=== PATIENT | male | born 1960 | race Caucasian/White ===

== ENCOUNTER 2021-04-03 11:45 | Emergency (ER) | payer BC, OTHER ==
--- NOTE | 2021-04-03 14:16 | ED ---
General Adult HPI - General Chief complaint: Abdominal Pain Stated complaint: Left groin pain [facility] Time Seen by Provider: 04/03/21 12:50 Source: patient, RN notes reviewed, old records reviewed Mode of arrival: ambulatory Limitations: no limitations - History of Present Illness Initial comments: This is a 60-year-old male who presents to the emergency department complaining about bilateral inguinal hernias. Patient states she was seen at [facility] and they sent him over to be evaluated. Patient states yesterday was the first day he noted to have an inguinal hernia went to [facility] in they diagnosed with an inguinal hernia. Patient states today the pain was a little worse on the left and he noted a little lump on the right and that made him concerned she went back to [facility] and they sent him in the emergency department. Patient states when he stands significant bulge on the left and a small one on the right. Patient denies any fever chills patient denies any abdominal pain patient denies nausea vomiting diarrhea. - Related Data Allergies Allergy/AdvReac Type Severity Reaction Status Date / Time No Known Allergies Allergy Verified 04/03/21 12:47 Review of Systems ROS Statement: Those systems with pertinent positive or pertinent negative responses have been documented in the HPI. ROS Other: All systems not noted in ROS Statement are negative. Past Medical History Past Medical History: No Reported History History of Any Multi-Drug Resistant Organisms: None Reported Past Surgical History: No Surgical Hx Reported Past Psychological History: No Psychological Hx Reported Smoking Status: Current every day smoker Past Alcohol Use History: None Reported Past Drug Use History: None Reported General Exam - General Exam Comments Initial Comments: GENERAL: Patient is well-developed and well-nourished. Patient is nontoxic and well- hydrated and is in no acute distress. ENT: Neck is soft and supple. No significant lymphadenopathy is noted. Oropharynx is clear. Moist mucous membranes. Neck has full range of motion without eliciting any pain. EYES: The sclera were anicteric and conjunctiva were pink and moist. Extraocular movements were intact and pupils were equal round and reactive to light. Eyelids were unremarkable. ABDOMEN: Soft and nontender with normal bowel sounds. INGUINAL: Patient has a hernia on the left which is completely reducible with lying the patient supine there was a very small bulge on the right neither side had an incarcerated hernia both reducible lying flat. SKIN: Skin is clear with no lesions or rashes and otherwise unremarkable. NEUROLOGIC: Patient is alert and oriented x3. Cranial nerves II through XII are grossly intact. Motor and sensory are also intact. Normal speech, volume and content. Symmetrical smile. MUSCULOSKELETAL: Normal extremities with adequate strength and full range of motion. LYMPHATICS: No significant lymphadenopathy is noted PSYCHIATRIC: Normal psychiatric evaluation. Limitations: no limitations Course Vital Signs 04/03/21 12:47 Temperature 97.4 F L Pulse Rate 66 Respiratory 20 Rate Blood Pressure 169/87 O2 Sat by Pulse 96 Oximetry Disposition Clinical Impression: Inguinal hernia, bilateral Disposition: HOME SELF-CARE Condition: Good Instructions (If sedation given, give patient instructions): Inguinal Hernia (ED) Additional Instructions: Patient is to return if the hernia is not reducible or if there is worsening pain Is patient prescribed a controlled substance at d/c from ED?: No Referrals: Tello Peña DO [Primary Care Provider] - 1-2 days Time of Disposition: 14:16
[2021-04-03 14:47] VITALS: BP 166/60; PULSE 64; RESP 16; TEMP 98
== END 2021-04-03 14:45 | disposition home or self-care (01) ==
LOC: EC 11:45
DX: K40.20 Bilateral inguinal hernia, without obstruction or gangrene, not specified as recurrent (principal); F17.200 Nicotine dependence, unspecified, uncomplicated
CPT/HCPCS: 99283

== ENCOUNTER 2021-05-07 08:09 | Day surgery (SDC) | payer BC, OTHER ==
[2021-05-02 15:59] VITALS: BMI 26.6
[~2021-05-07 08:09] MED LIST: ACETAMINOPHEN TAB 500 MG TAB PO PRN; DEXAMETHASONE SOD PHOSPHATE 4 MG/ML 1 ML VIAL IV ONE; HEPARIN SODIUM,PORCINE/PF 5,000 UNIT/0.5 ML SYRINGE SQ PRN; LACTATED RINGERS 1,000 ML IV SCH; LIDOCAINE 1% (10MG/ML) FOR IV START INTRADERMA PRN; ONDANSETRON 4 MG/2 ML VIAL IVP ONE
[2021-05-07 08:51] VITALS: TEMP 97.9
[2021-05-07 09:24] LABS: HCT 44.7 % (39.0-53.0); HGB 15.5 gm/dL (13.0-17.5); MCH 33.3 pg (25.0-35.0); MCHC 34.7 g/dL (31.0-37.0); MCV 95.8 fL (80.0-100.0); Mean Platelet Volume 7.1; Platelet Count 218 k/uL (150-450); RBC 4.67 m/uL (4.30-5.90); RDW 12.1 % (11.5-15.5); WBC 7.7 k/uL (3.8-10.6)
--- NOTE | 2021-05-07 09:48 | P.GSHP ---
History of Present Illness H&P Date: 05/07/21 Chief Complaint: Bilateral inguinal hernia This a 60-year-old male who presents today for laparoscopic robotic-assisted repair of bilateral inguinal hernia. Patient's complaints of tender masses in bilateral groins. Using the hospital reducible inguinal hernias. 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 Past Anesthesia/Blood Transfusion Reactions: No Reported Reaction Past Psychological History: No Psychological Hx Reported Smoking Status: Current every day smoker Past Alcohol Use History: None Reported Additional Past Alcohol Use History / Comment(s): Has been smoking 35-40 yrs, 2 ppd. Past Drug Use History: None Reported - Past Family History Father Family Medical History: No Reported History Medications and Allergies Home Medications Medication Instructions Recorded Confirmed Type No Known Home Medications 05/02/21 05/07/21 History Allergies Allergy/AdvReac Type Severity Reaction Status Date / Time No Known Allergies Allergy Verified 05/07/21 08:44 Surgical - Exam Vital Signs Temp Pulse Resp BP Pulse Ox 97.9 F 68 16 150/71 96 05/07/21 08:45 05/07/21 08:45 05/07/21 08:45 05/07/21 08:45 05/07/21 08:45 - General well developed, well nourished, no distress - Eyes PERRL - ENT normal pinna - Neck no masses - Respiratory normal expansion - Cardiovascular Rhythm: regular - Abdomen Abdomen: soft Results - Labs 05/07/21 09:20 Assessment and Plan Assessment: Bilateral inguinal hernias. We'll perform laparoscopic robotic-assisted repair.
[2021-05-07] MEDS ORDERED: ROCURONIUM 10 MG/ML (5 ML VIAL) IV ONE (09:55)
[2021-05-07] MEDS ORDERED: LIDOCAINE 1% INJ 10MG/ML (20 ML MDV) ONE (09:55)
[2021-05-07] MEDS ORDERED: SUCCINYLCHOLINE CHLORIDE 100 MG/5 ML SYR IV ONE (09:55)
[2021-05-07] MEDS ORDERED: .fentaNYL (PF) 50 MCG/ML 2 ML AMP ONE (09:55)
[2021-05-07] MEDS ORDERED: NEOSTIGMINE 1 MG/ML 10 ML VIAL ONE (09:55)
[2021-05-07] MEDS ORDERED: GLYCOPYRROLATE 0.2 MG/ML 2 ML VIAL ONE (09:55)
[2021-05-07] MEDS ORDERED: KETAMINE 10 MG/ML 20 ML VIAL ONE (09:55)
[2021-05-07] MEDS ORDERED: MIDAZOLAM 2 MG/2 ML VIAL ONE (09:55)
[2021-05-07] MEDS ORDERED: PROPOFOL 10 MG/ML 20 ML VIAL IV ONE (09:55)
[2021-05-07] MEDS ORDERED: BUPIVACAINE (PF) 0.25% 30 ML VIAL SQ ONE (10:16)
[2021-05-07] MEDS: HYDROmorphone 0.5 MG/0.5 ML SYRINGE IVP PRN ×4 (10:52→11:07)
--- NOTE | 2021-05-07 10:53 | P.OP ---
Date of Procedure: 05/07/21 Preoperative Diagnosis: Bilateral inguinal hernia Postoperative Diagnosis: Bilateral inguinal hernia Procedure(s) Performed: Laparoscopic robotic system repair of bilateral inguinal hernia Excision of right cord lipoma Anesthesia: [facility] Surgeon: Bryan Victoria Estimated Blood Loss (ml): 5 Pathology: other (Right cord lipoma) Condition: stable Disposition: PACU Description of Procedure: MThe patient's placed on the operating table in the supine position. The patient received general anesthesia. The patient's abdomen was prepped and draped in usual sterile fashion. The skin was anesthetized 1% local Xylocaine at the incision sites. Using an 11 blade a skin incision was made at the umbilicus. The fascia was grasped with a Egan and then the peritoneal cavity was entered with the Veress needle. Position of the Veress needle was confirmed with a positive drop test. After adequate insufflation a 5 mm trocar was placed into the peritoneal cavity. The Laparoscope was placed the peritoneal cavity. And a robotic 8 mm trocar was placed in the right lateral position and then another 8 mm robotic trochars placed in the left lateral position. The original 5 mm trocar was exchanged for a 12 mm trocar. The patient was placed in reverse Trendelenburg and then the patient was docked to the robot. Next the peritoneum over top of the right inguinal hernia was incised and then using blunt and sharp dissection and electrocautery the hernia sac was dissected free from the floor of the inguinal canal. The cord lipoma was dissected free and sent to pathology. The hernia sac was completely reduced into the peritoneal cavity. And then using the Pro pediatric clinical nurse specialist mesh the hernia was repaired. The peritoneum was then sutured with 20V lock suture. Next the peritoneum over top of the left inguinal hernia was incised and then using blunt and sharp dissection and electrocautery the hernia sac was dissected free from the floor of the inguinal canal. The hernia sac was completely reduced into the peritoneal cavity. And then using the Pro pediatric clinical nurse specialist mesh the hernia was repaired. The peritoneum was then sutured with 20V lock suture. The patient was then undocked the robot. The needle was withdrawn from the peritoneal cavity. The umbilical trocar site was closed with 0 Ethibond suture. The skin was closed interrupted 3-0 Monocryl suture. Dermabond dressing was applied. Patient was sent to recovery in stable condition.
[2021-05-07 12:16] VITALS: RESP 16
[2021-05-07 13:06] VITALS: BP 143/65; PULSE 67
== END 2021-05-07 13:57 | disposition home or self-care (01) ==
LOC: OR 08:09
PROVIDERS: ATTEND Surgery
DX: K40.20 Bilateral inguinal hernia, without obstruction or gangrene, not specified as recurrent (principal)
CPT/HCPCS: 49650; 88304; 85027; C1781 ×2; J2250; J1100; J2710; J0690; J2405; J2001; J3010; J0330; J2704; J1170; J1644

== ENCOUNTER → 2021-10-27 | Outpatient (CLI) | payer BC ==
--- NOTE | 2021-10-27 08:42 | CT ---
EXAMINATION TYPE: CT chest wo con DATE OF EXAM: 10/27/2021 INDICATION: Chronic cough CT DLP: 461 mGy.cm Automated Exposure Control for Dose Reduction was Utilized. TECHNIQUE AND CONTRAST: CT scan of the chest is performed without IV contrast administration. COMPARISON: None available FINDINGS: Mild to moderate centrilobular emphysematous changes seen mainly in the upper lobes. 5.7 mm pleural-b ased nodule is seen at the lateral aspect of the right lower lobe (image #[id number], series 4). Grossly unre markable lungs otherwise. No sizable pleural effusion or definite pneumothorax. Patent central airway s. No cardiomegaly. Arterial and coronary atherosclerotic calcifications. No pericardial effusion. No pa thologically enlarged lymph nodes in the chest. Grossly unremarkable upper abdomen. Degenerative boland ges of the thoracic spine. No aggressive bone lesion. IMPRESSION: Mild to moderate centrilobular emphysematous changes as described above. 5.7 mm pleural-based right lower lobe nodule, requiring no further follow-up if low risk patient. If high risk patient, optional follow-up CT scan in 12 months can be considered. Other incidental findin gs as described above.
== END | disposition home or self-care (01) ==
LOC: RADCTMAIN 06:26
PROVIDERS: ATTEND Family Medicine
DX: J43.2 Centrilobular emphysema (principal); R91.1 Solitary pulmonary nodule
CPT/HCPCS: 71250

== ENCOUNTER 2021-11-21 10:18 | Day surgery (SDC) | payer BC ==
[2021-11-20 08:54] VITALS: BMI 27.6
[~2021-11-21 10:18] MED LIST changes: -ACETAMINOPHEN TAB 500 MG TAB PO PRN; +ALPRAZolam 0.25 MG TAB PO PRN; +ALPRAZolam 0.5 MG TAB PO PRN; +ASPIRIN 325 MG TAB PO STA; +ATORVASTATIN 80 MG TAB PO STA; -DEXAMETHASONE SOD PHOSPHATE 4 MG/ML 1 ML VIAL IV ONE; +HEPARIN SODIUM,PORCINE 10,000 UNIT in SODIUM CHLORIDE 0.9% 1,000 ML IRRIGATION PRN; +HEPARIN SODIUM,PORCINE 2,500 UNIT in SODIUM CHLORIDE 0.9% 250 ML IRRIGATION PRN; -HEPARIN SODIUM,PORCINE/PF 5,000 UNIT/0.5 ML SYRINGE SQ PRN; -LACTATED RINGERS 1,000 ML IV SCH; -LIDOCAINE 1% (10MG/ML) FOR IV START INTRADERMA PRN; +NITROGLYCERIN SL TABS 0.4 MG TAB SUBLINGUAL PRN; -ONDANSETRON 4 MG/2 ML VIAL IVP ONE
[2021-11-21] MEDS ORDERED: SODIUM CHLORIDE 0.9% 1,000 ML IV ONE (10:49)
[2021-11-21 10:58] LABS: African American GFR (CKD) >90 (>60 ml/min/1.73 sqM); Anion Gap 6 mmol/L; Blood Urea Nitrogen 11 mg/dL (9-20); Calcium 9.2 mg/dL (8.4-10.2); Carbon Dioxide 26 mmol/L (22-30); Chloride 107 mmol/L (98-107); Glucose 94 mg/dL (74-99); Non-African American GFR(CKD) >90 (>60 ml/min/1.73 sqM); Sodium 139 mmol/L (137-145)
[2021-11-21 11:07] LABS: Potassium 5.2 mmol/L (3.5-5.1)
[2021-11-21] MEDS ORDERED: VERAPAMIL 2.5 MG/ML 2 ML AMP ONE (12:43)
[2021-11-21] MEDS ORDERED: HEPARIN SODIUM 1,000 UN/ML (10ML VL) ONE (12:44)
[2021-11-21] MEDS ORDERED: MIDAZOLAM 2 MG/2 ML VIAL IV ONE (12:55)
[2021-11-21] MEDS ORDERED: LIDOCAINE 1% INJ 10MG/ML (30 ML VIAL-PF) SQ ONE (12:55)
[2021-11-21] MEDS ORDERED: VERAPAMIL SYRINGE (5 MG/10 ML) INTRAARTER ONE (12:57)
[2021-11-21] MEDS: HEPARIN SODIUM 1,000 UN/ML (10ML VL) IV ONE ×2 (13:03→13:15)
[2021-11-21 13:14] LABS: Basophils % (A) 0 %; Eosinophils # (A) 0.2 k/uL (0-0.7); Eosinophils % (A) 3 %; HCT 45.6 % (39.0-53.0); Lymphocytes # (A) 2.3 k/uL (1.0-4.8); Lymphocytes % (A) 28 %; MCH 33.3 pg (25.0-35.0); MCHC 34.7 g/dL (31.0-37.0); Mean Platelet Volume 6.9; Monocytes # (A) 0.5 k/uL (0-1.0); Monocytes % (A) 6 %; Neutrophils # (A) 5.1 k/uL (1.3-7.7); Neutrophils % (A) 61 %; Platelet Count 193 k/uL (150-450); RBC 4.75 m/uL (4.30-5.90); RDW 12.8 % (11.5-15.5); WBC 8.4 k/uL (3.8-10.6)
[2021-11-21 13:18] LABS: HGB 15.8 gm/dL (13.0-17.5)
[2021-11-21] MEDS ORDERED: IOPAMIDOL-370 100ML BTL INJ ONE ×2 (13:26→13:57)
[2021-11-21] MEDS ORDERED: TICAGRELOR 90 MG TAB ONE (13:51)
[2021-11-21] MEDS ORDERED: TICAGRELOR 90 MG TAB PO ONE (13:57)
[2021-11-21] MEDS ORDERED: amLODIPine 5 MG TAB ONE (13:58)
[2021-11-21] MEDS ORDERED: amLODIPine 5 MG TAB PO ONE (14:00)
[2021-11-21] MEDS ORDERED: ALBUTEROL NEBULIZED 2.5 MG/3 ML INHALATION PRN (14:15)
[2021-11-21] MEDS: SODIUM CHLORIDE 0.9% 1,000 ML in EMPTY BAG 1 BAG IV SCH ×2 (15:27→19:57)
[2021-11-21] MEDS: SODIUM CHLORIDE 0.9% 1,000 ML IV SCH (15:27)
--- NOTE | 2021-11-21 18:42 | CA ---
Transthoracic Echo Report Name: Lui Rondon Age: 61 Gender: M : 1960 Exam Date: 11/21/2021 14:10 Exam Location: [facility] Ht (in): Wt (lb): Ordering Physician: Jyothi Gaffney MD ([id number]) Attending/Referring Phys: Gulshan Roe;[id number] Senior Sales Administrator Meagan Marr RDCS Procedure CPT: Indications: assess function Cardiac Hx: Technical Quality: Good Contrast 1: Total Dose (mL): Contrast 2: Total Dose (mL): MEASUREMENTS (Male / Female) Normal Values FINDINGS Left Ventricle Left ventricular ejection fraction is estimated at 55-60 %. Left ventricular cavity size normal. Grade 1 diastolic dysfunction. Left ventricular wall thickness normal. Right Ventricle The right ventricle is normal in size and function. Right Atrium The right atrium is normal in size. Left Atrium The left atrium is normal in size. Mitral Valve Structurally normal mitral valve without significant stenosis or prolapse. There is mild mitral regurgitation. Aortic Valve Structurally normal aortic valve without significant sclerosis or stenosis. There is no aortic regurgitation. Tricuspid Valve Structurally normal tricuspid valve without significant stenosis. Pulmonary artery systolic pressure is normal. Mild tricuspid regurgitation. Pulmonic Valve Structurally normal pulmonic valve without significant stenosis. There is no pulmonic regurgitation. Pericardium Normal pericardium without effusion. Aorta Normal aortic root dimension. CONCLUSIONS Normal LV systolic function Normal RV size and function Previewed by: Dr. Frederick Mtz MD (Electronically Signed) Final Date: 21 November 2021 18:41
[2021-11-21] MEDS: SYMBICORT 160-4.5 MCG INHALER INHALATION SCH (19:48)
[2021-11-21] MEDS: VARENICLINE 0.5 MG TAB PO SCH (19:59)
--- NOTE | 2021-11-21 20:39 | CC ---
CARDIAC CATHETERIZATION REPORT DATE OF SERVICE: 11/21/2021. PROCEDURE: 1. Left heart catheterization and coronary angiography. 2. Percutaneous transluminal coronary angioplasty and stenting of mid LAD long calcified lesion with a drug-eluting stent. 3. IFR assessment of left proximal circumflex coronary artery. PERFORMED BY: Dr. Cheri Gaffney. Moderate conscious sedation time was 62 minutes. Patient was administered Versed. Oxygen saturation, hemodynamics and EKG were monitored closely. CLINICAL INFORMATION: Mr. Rondon is a 61-year-old gentleman who is a heavy smoker of more than two packs, has bronchial asthma, COPD, had episodes of chest tightness and pressure. He also has palpitations. Holter monitor revealed sinus rhythm with isolated PACs and PVCs. No significant tachy- or bradyarrhythmia was noted. Lexiscan stress test revealed anterolateral reversible defect suggestive of ischemia with a global decrease in contractility. He was advised cardiac catheterization and brought in for the procedure electively. His ejection fraction was in the 45% to 50% range. PROCEDURE NOTE: Under local anesthesia and strict aseptic precautions, a 6-Citizen Of [place] introducer was placed in the right right radial artery. Using a JL3.5 and JR4 catheters, I performed coronary angiography and noted that he had significant disease with a mid LAD lesion of about 90% long and calcified and also a 50% proximal circumflex and a 40% to 50% RCA lesion. He was advised intervention of the LAD and also assessment by IFR for the circumflex lesion. I performed this in the same setting. Patient was placed on atorvastatin, metoprolol succinate and aspirin prior to his procedure. Following the PCI procedure of the LAD and IFR assessment of circumflex, the sheath was taken out and TR band applied as per protocol. Saturation in the fingers of the right hand was about 95%. CARDIAC CATHETERIZATION FINDINGS: RIGHT CORONARY ARTERY: Technically a codominant vessel that gives off the PDA, has about a 40% proximal/mid lesion at the junction of proximal and middle one third and has minor irregularities. Distally gives off a PDA. A small PLV is noted. The PDA is a good-sized, good-caliber vessel, has minor irregularities. LEFT MAIN CORONARY ARTERY: Short, patent vessel free of significant disease. Bifurcates into LAD and circumflex. LEFT ANTERIOR DESCENDING CORONARY ARTERY: This vessel after it gives off a small septal branch proximally continues onwards and has a long 80% to 90% lesion, after which the caliber of the vessel improves and it runs all the way to the apex, supplying a sizable amount of myocardium. In the distal one third it gives off a good-sized diagonal branch. The mid LAD therefore has a long lesion of anywhere from 60% to 90%. The distal aspect is 90% and from this lesion comes off a small diagonal branch of 1 mm caliber. LAD therefore has a significant lesion and it supplies a sizable amount of myocardium. LEFT POSTERIOR CIRCUMFLEX CORONARY ARTERY: This is a codominant vessel, has a proximal 55% lesion, gives off a large obtuse marginal that has about a 40% lesion and continues. Circumflex distally gives off a PLV branch and circumflex has minor diffuse irregularities. Codominant circumflex proximally has a 55% lesion. Left ventriculogram was not performed. FINAL IMPRESSION: This patient has normal filling pressures of about left ventricular end-diastolic pressure of about 10 mmHg without a gradient across aortic valve. This is a codominant vessel with a 45% mid RCA lesion and a 55% proximal circumflex lesion. LAD has an 80% to 90% mid lesion which is long and calcified. LV-gram was not performed. RECOMMENDATIONS: I recommended PCI of LAD and IFR assessment of circumflex and performed this in the same setting. PERCUTANEOUS CORONARY INTERVENTION PROCEDURE DETAILS: I used an XB LAD 3.5 guide catheter to cannulate the left coronary artery and a run- through wire to cross the lesion. Predilatation was performed with a 20 mm long 2.5 caliber NC Trek balloon. There was a small dissection at the site of 90% stenosis, self-limited. I then deployed a 2.75 caliber 23 mm long Xience stent at 13 atmospheres. Patient had chest pain and precordial ST elevation. Excellent angiographic result was achieved without complication. I then turned my attention to the circumflex. Using the same guide catheter, I used an Omni short straight wire to cross the lesion in the circumflex. The wire was zeroed and also the calibration was performed appropriately in the ascending aorta. I performed two separate tests for IFR and IFR was 0.95 and 0.96. This suggested circumflex lesion was not significant. The sheath was then taken out and TR band applied as per protocol. Saturation in the fingers of the right hand was 95%. Patient tolerated the procedure well. Excellent angiographic result was achieved of the mid LAD lesion and IFR was unremarkable for the circumflex lesion. Results were discussed with the patient and family and he will be discharged tomorrow if he remains stable. Patient received a total of 6000 units of heparin and ACT after about 15 to 20 minutes during the middle of the procedure was about 295. He also received 180 mg of Brilinta. Excellent angiographic result without complication was achieved and patient will be discharged tomorrow. MMODL / IJN: [id number] /
[2021-11-21] MEDS ORDERED: METOPROLOL TARTRATE 25 MG TAB PO SCH (21:00)
[2021-11-21] MEDS ORDERED: ATORVASTATIN 80 MG TAB PO SCH (21:00)
[2021-11-21] MEDS ORDERED: amLODIPine 5 MG TAB PO SCH (21:00)
[2021-11-22] MEDS: SODIUM CHLORIDE 0.9% 1,000 ML IV SCH (02:38)
[2021-11-22] MEDS: SODIUM CHLORIDE 0.9% 1,000 ML in EMPTY BAG 1 BAG IV SCH (02:39)
[2021-11-22 04:43] LABS: Basophils # (A) 0.1 k/uL (0-0.2); Basophils % (A) 1 %; Eosinophils # (A) 0.3 k/uL (0-0.7); Eosinophils % (A) 3 %; HCT 43.6 % (39.0-53.0); HGB 14.8 gm/dL (13.0-17.5); Lymphocytes # (A) 1.9 k/uL (1.0-4.8); Lymphocytes % (A) 19 %; MCH 32.9 pg (25.0-35.0); MCHC 33.9 g/dL (31.0-37.0); MCV 97.1 fL (80.0-100.0); Monocytes # (A) 0.7 k/uL (0-1.0); Monocytes % (A) 7 %; Neutrophils # (A) 6.9 k/uL (1.3-7.7); Neutrophils % (A) 68 %; Platelet Count 195 k/uL (150-450); RBC 4.49 m/uL (4.30-5.90); RDW 12.3 % (11.5-15.5); WBC 10.1 k/uL (3.8-10.6)
[2021-11-22 05:00] LABS: African American GFR (CKD) >90 (>60 ml/min/1.73 sqM); Anion Gap 4 mmol/L; Blood Urea Nitrogen 10 mg/dL (9-20); Calcium 8.3 mg/dL (8.4-10.2); Carbon Dioxide 26 mmol/L (22-30); Chloride 107 mmol/L (98-107); Glucose 93 mg/dL (74-99); Non-African American GFR(CKD) >90 (>60 ml/min/1.73 sqM); Potassium 4.2 mmol/L (3.5-5.1); Sodium 137 mmol/L (137-145)
[2021-11-22] MEDS: SYMBICORT 160-4.5 MCG INHALER INHALATION SCH (07:16)
[2021-11-22 07:51] VITALS: BP 115/66; PULSE 57; RESP 18; TEMP 97.9
[2021-11-22] MEDS: VARENICLINE 0.5 MG TAB PO SCH (08:33)
[2021-11-22] MEDS ORDERED: TICAGRELOR 90 MG TAB PO SCH (09:00)
[2021-11-22] MEDS ORDERED: LOSARTAN 50 MG TAB PO SCH (09:00)
[2021-11-22] MEDS ORDERED: METOPROLOL TARTRATE 25 MG TAB PO SCH (09:00)
[2021-11-22] MEDS ORDERED: ASPIRIN 81 MG PO SCH (09:00)
--- NOTE | 2021-11-22 09:46 | DS ---
DISCHARGE SUMMARY DATE OF ADMISSION: 11/21/2021 DATE OF DISCHARGE: 11/22/2021. DIAGNOSES: 1. Unstable angina. 2. Hyperlipidemia. 3. Tobacco abuse. 4. Chronic obstructive pulmonary disease. Mr. Rondon was brought in for elective cardiac cath for abnormal stress test. Cath was performed from right radial approach which revealed an 85-95 percent stenosis in the mid LAD a long lesion which was stented with a drug-eluting stent with excellent result. There was a moderate lesion in the circumflex for which I performed an IFR which was negative for any significant physiologic impairment of circulation in the circumflex distribution. IFR was 0.95. The RCA had a moderate lesion. The patient will be on dual antiplatelet therapy, specifically Brilinta and aspirin for 1 year without interruption. He will also be on losartan, metoprolol tartrate 25 mg daily, amlodipine 2.5 mg at bedtime, losartan 50 mg in the morning, Brilinta 90 mg 1 tab b.i.d., aspirin 81 mg daily, and the dual antiplatelet therapy will be for 1 year. He will be discharged today. Vitals are stable. Blood pressure is 118/70, pulse rate is 56 per minute. No JVD. S1-S2 heard normally. Lungs are clear. Abdomen is soft, nontender. Lower extremities reveal normal pulses. No edema. Central nervous system grossly within normal limits. Right radial site is clean and dry with a good pulse. EKG and blood work are unremarkable. Discharge instructions regarding activity, diet and medications were given. Appointment is on 11/27/2021 at 10:30. Patient will be discharged. He will call if he has any questions. MMODL / IJN: [id number] /
[2021-11-22] MEDS ORDERED: amLODIPine 2.5 MG TAB PO SCH (21:00)
== END 2021-11-22 10:14 | disposition home or self-care (01) ==
LOC: CATHCVL 10:18 → 6NMEDSUR 13:51 → CATHCVL 11-22 10:14
PROVIDERS: ATTEND Internal Medicine Interventional Cardiology
DX: R94.8 Abnormal results of function studies of other organs and systems (principal); R94.39 Abnormal result of other cardiovascular function study; E78.5 Hyperlipidemia, unspecified; J44.9 Chronic obstructive pulmonary disease, unspecified; J45.998 Other asthma; Z20.822 Contact with and (suspected) exposure to COVID-19; I25.110 Atherosclerotic heart disease of native coronary artery with unstable angina pectoris; I25.84 Coronary atherosclerosis due to calcified coronary lesion; F17.200 Nicotine dependence, unspecified, uncomplicated; E78.00 Pure hypercholesterolemia, unspecified; Z79.82 Long term (current) use of aspirin; Z79.899 Other long term (current) drug therapy
CPT/HCPCS: 94640 ×2; 93306; 93458; 93799; 80048 ×2; 85025 ×2; 87635; C9600; C1769 ×5; C1894; C1725; C1874; J2250; J2001; J1644; Q9967

== ENCOUNTER 2022-05-28 19:33 | Emergency (ER) | payer BC ==
[2022-05-28 19:40] VITALS: RESP 16; TEMP 98
--- NOTE | 2022-05-28 20:09 | ED ---
Chest Pain HPI - General Chief Complaint: Chest Pain Stated Complaint: Chest pain,L arm numbness Time Seen by Provider: 05/28/22 19:42 Source: patient, RN notes reviewed Mode of arrival: wheelchair Limitations: no limitations - History of Present Illness Initial Comments: This is a 61 year old male who presents to the emergency department for left wrist/arm pain and chest pain. States that the symptoms started approximately 1 hour prior to arrival. This started with pain in the wrist, which he states occurred suddenly when he was eating dinner. This has traveled up the arm and into the shoulder In November of this year, he had chest pain that subsequently led to a stent placement. States that he expressed chest pain to his primary care provider, who subsequently ordered a stress test. This was found to be abnormal, leading to the stent placement. States that the pain is not the same, however due to his history, his wanted him to be evaluated. Reports minor associated shortness of breath, and is unsure if this may be related to the COPD. Denies any fevers, chills, sore throat, cough, palpitations, abdominal pain, nausea, vomiting, diarrhea, back pain, or headaches. MD Complaint: chest pain Onset: during rest Pain Location: left chest - Related Data Home Medications Medication Instructions Recorded Confirmed Albuterol Inhaler [Ventolin Hfa 2 puff INHALATION RT-QID PRN 11/20/21 05/28/22 Inhaler] Budesonide-Formot 160-4.5 Mcg 2 puff INHALATION RT-BID 11/20/21 05/28/22 [Symbicort 160-4.5 Mcg Inhaler] Varenicline [Chantix Starter Pack] 0.5 mg PO DIRECTED 11/20/21 05/28/22 Metoprolol Succinate (ER) [Toprol 25 mg PO DAILY 05/28/22 05/28/22 Xl] Sildenafil Citrate 100 mg PO DAILY PRN 05/28/22 05/28/22 Previous Rx's Medication Instructions Recorded Aspirin 81 mg PO DAILY #90 tab 11/22/21 Atorvastatin [Lipitor] 80 mg PO DAILY #90 tab 11/22/21 Losartan [Cozaar] 50 mg PO DAILY #90 tab 11/22/21 Ticagrelor [Brilinta] 90 mg PO BID #180 tab 11/22/21 amLODIPine [Norvasc] 2.5 mg PO HS #90 tablet 11/22/21 HYDROcodone/APAP 5-325MG [Hallam 1 tab PO Q6HR PRN 3 Days #12 tab 05/29/22 5-325] Allergies Allergy/AdvReac Type Severity Reaction Status Date / Time No Known Allergies Allergy Verified 11/21/21 10:31 Review of Systems ROS Statement: Those systems with pertinent positive or pertinent negative responses have been documented in the HPI. ROS Other: All systems not noted in ROS Statement are negative. Past Medical History Past Medical History: Chest Pain / Angina, COPD, Hyperlipidemia Additional Past Medical History / Comment(s): HX E.D. 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 VASECTOMY Past Anesthesia/Blood Transfusion Reactions: No Reported Reaction Past Psychological History: No Psychological Hx Reported Smoking Status: Current every day smoker Past Alcohol Use History: None Reported Past Drug Use History: None Reported - Past Family History Father Family Medical History: No Reported History General Exam Limitations: no limitations General appearance: alert, in no apparent distress Head exam: Present: atraumatic, normocephalic, normal inspection Respiratory exam: Present: normal lung sounds bilaterally. Absent: respiratory distress, wheezes, rales, rhonchi, stridor Cardiovascular Exam: Present: regular rate, normal rhythm, normal heart sounds. Absent: systolic murmur, diastolic murmur, rubs, gallop, clicks Extremities exam: Present: other (Swelling and tenderness over the dorsal aspect of the left wrist and limited range of motion secondary to pain.) Neurological exam: Present: alert, oriented X3, CN II-XII intact Psychiatric exam: Present: normal affect, normal mood Skin exam: Present: warm, dry, intact, normal color. Absent: rash Course Vital Signs 05/28/22 05/29/22 19:36 00:00 Temperature 98 F Pulse Rate 77 78 Respiratory 16 16 Rate Blood Pressure 187/90 142/78 O2 Sat by Pulse 97 99 Oximetry Procedures - Orthopedic Splinting/Casting Injury #1 Side: left Upper Extremity Injury Location: wrist Upper Extremity Immobilizer: thumb spica Chest Pain MDM - MDM This is a 61-year-old male who presents to the emergency department for chest pain and left wrist pain. Was pt. sent in by a medical professional or institution? @ -No Did you speak to anyone other than the patient for history? @ -No Did you review nursing and triage notes? @ -Disagree, symptoms are not entirely consistent with the prior chest pain leading to stent placement. Were old charts reviewed? @ -Yes, cardiac catheterization from 11/21/21. Differential Diagnosis? @ -Differential Chest Pain: Stable Angina, Unstable Angina, STEMI, NSTEMI Aortic Dissection, Pneumothorax, Musculoskeletal, Esophageal Spasm GERD, Cholecystitis, Pancreatitis, Zoster, this is not meant to be an all-inclusive list. EKG interpreted by me (3pts min.)? @ -Normal sinus rhythm. Ventricular rate 72 BPM, UT interval 140 ms, QRS duration 90 ms, QTc 400 ms. X-rays interpreted by me (1pt min.)? @ -Chest x-ray obtained, my interpretation reveals no localized consolidations or infiltrates. My interpretation of the left wrist x-ray identifies soft tissue swelling and what appears to be angulation of the scaphoid bone. What testing was considered but not performed? (CT, X-rays, U/S, labs)? Why? @ -None What meds were considered but not given? Why? @ -None Did you discuss the management of the patient with other professionals? @ -No Did you reconcile home meds? @ -No Was critical care preformed (if so, how long)? @ -No Were there social determinants of health that impacted care today? How? (Homelessness, low income, unemployed, alcoholism, drug addiction, transportation, low edu. Level, literacy, decrease access to med. care, intermediate, rehab)? @ -No Was there de-escalation of care discussed even if they declined? (Discuss DNR or withdrawal of care, Hospice)? @ -No What co-morbidities impacted this encounter? (DM, HTN, Smoking, COPD, CAD, Cancer, CVA, Hep., AIDS, mental health diagnosis, sleep apnea, morbid obesity)? @ -CAD, HLD, COPD. Was patient admitted / discharged? @ -Discharged. When I initially examined the patient, he had notable swelling and reproducible pain to the wrist. It appears that all of his symptoms started in the wrist and traveled up into the arm and shoulder more so than the chest itself. Cardiac workup was negative, including no acute EKG changes and 2 negative troponins. The radiologist makes note of possible mild asymmetry on the chest x-ray to suggest a developing or resolving pneumonina. Patient is not exhibiting any coughing and believes that his shortness of breath is related to the COPD. X-ray of the wrist is suspicious for a scaphoid fracture. Thumb spica splint was applied. He was given morphine and Toradol, which effectively controlled his pain. He was given a starter pack for Tylenol #3 and a prescription for Hallam was provided. Advised to take this sparingly and when his pain is the most severe, and to otherwise alternate with ibuprofen and Tylenol. Information for orthopedic follow-up provided, he is advised to contact them in the morning for a follow-up appointment. Drug Therapy requiring intensive monitoring for toxicity (Heparin, Nitro, Insulin, Cardizem)? @ -None Were any procedures done? @ -Thumb spica splint Diagnosis/symptom? @ -Left scaphoid fracture Acute, or Chronic, or Acute on Chronic? @ -Acute Uncomplicated (without systemic symptoms) or Complicated (systemic symptoms)? @ -Uncomplicated Side effects of treatment? @ -Poor healing Exacerbation, Progression, or Severe Exacerbation] @ -Not applicable Poses a threat to life or bodily function? @ -May impact function depending on the severity of his symptoms. Diagnosis/symptom? @ -Chest pain Acute, or Chronic, or Acute on Chronic? @ -Acute Uncomplicated (without systemic symptoms) or Complicated (systemic symptoms)? @ -Uncomplicated Side effects of treatment? @ -None Exacerbation, Progression, or Severe Exacerbation] @ -Not applicable Poses a threat to life or bodily function? @ -Not in the case of a noncardiac chest pain. Return precautions reviewed in depth, the patient is instructed to return to the emergency department with any new, worsening, or concerning symptoms. Patient verbalized understanding. This case was discussed in detail with the attending ED physician. Presentation, findings, and treatment plan discussed in detail as well. Disposition Clinical Impression: Fracture of scaphoid of left wrist, Chest pain Disposition: HOME SELF-CARE Instructions (If sedation given, give patient instructions): Splint Care (ED), Scaphoid Fracture (ED) Additional Instructions: Return to the emergency department with any new, worsening, or concerning symptoms. Alternate with ibuprofen and Tylenol for pain relief and take the Hallam sparingly when your pain is the most severe. Contact orthopedics in the morning for a follow-up appointment. Follow up with your primary care provider in 1-2 days. Prescriptions: HYDROcodone/APAP 5-325MG [Hallam 5-325] 1 tab PO Q6HR PRN 3 Days #12 tab PRN Reason: Pain Is patient prescribed a controlled substance at d/c from ED?: Yes When asked, does pt state using other controlled substances?: No If prescribed controlled substance>3 days was MAPS reviewed?: Prescribed <3 Days Referrals: Tello Peña DO [Primary Care Provider] - 1-2 days Den Helton MD [STAFF PHYSICIAN] - 1-2 days
[2022-05-28 20:31] LABS: Basophils % (A) 0 %; Eosinophils # (A) 0.2 k/uL (0-0.7); Eosinophils % (A) 2 %; HCT 43.3 % (39.0-53.0); HGB 15.5 gm/dL (13.0-17.5); Lymphocytes # (A) 2.4 k/uL (1.0-4.8); Lymphocytes % (A) 20 %; MCH 33.5 pg (25.0-35.0); MCHC 35.7 g/dL (31.0-37.0); MCV 93.9 fL (80.0-100.0); Mean Platelet Volume 7.4; Monocytes # (A) 0.8 k/uL (0-1.0); Monocytes % (A) 6 %; Neutrophils # (A) 8.3 k/uL (1.3-7.7); Neutrophils % (A) 69 %; Platelet Count 220 k/uL (150-450); RBC 4.61 m/uL (4.30-5.90); RDW 12.3 % (11.5-15.5); WBC 12.1 k/uL (3.8-10.6)
[2022-05-28 20:40] LABS: INR 0.9 (<1.2); Partial Thromboplastin Time 23.6 sec (22.0-30.0)
[2022-05-28 20:41] LABS: ALT 21 U/L (4-49); AST 27 U/L (17-59); African American GFR (CKD) >90 (>60 ml/min/1.73 sqM); Albumin 4.4 g/dL (3.5-5.0); Alkaline Phosphatase 65 U/L (38-126); Anion Gap 8 mmol/L; Blood Urea Nitrogen 11 mg/dL (9-20); Calcium 9.1 mg/dL (8.4-10.2); Carbon Dioxide 27 mmol/L (22-30); Chloride 105 mmol/L (98-107); Glucose 99 mg/dL (74-99); Non-African American GFR(CKD) >90 (>60 ml/min/1.73 sqM); Potassium 4.2 mmol/L (3.5-5.1); Sodium 140 mmol/L (137-145); Total Bilirubin 0.6 mg/dL (0.2-1.3)
--- NOTE | 2022-05-28 21:08 | XR ---
EXAMINATION: XR chest 2V: 05/28/2022 8:22 PM CLINICAL INDICATION: Chest Pain TECHNIQUE: Departmental protocol COMPARISON: CT chest 10/27/2021 FINDINGS: The lungs are predominantly well expanded and clear. There is, however, slight asymmetry in the right infrahilar position, which shows added opacity compared with the left infrahilar position. This find ing can correlate with clinical diagnosis of developing or resolving pneumonia. The pleural spaces are negative. The cardiac silhouette is not enlarged. The remainder of the mediastinal silhouette is unremarkable. The skeletal structures and soft tissues are negative for acute findings. IMPRESSION: Mild asymmetry.
[2022-05-28] MEDS ORDERED: NITROGLYCERIN SL TABS 0.4 MG TAB SUBLINGUAL STA (21:18)
--- NOTE | 2022-05-28 21:26 | XR ---
PROCEDURE: XR wrist complete LT - 3V DATE AND TIME: 05/28/2022 8:22 PM CLINICAL INDICATION: PHH; Pain and swelling TECHNIQUE: Department protocol COMPARISON: None FINDINGS: There is prominent soft tissue swelling. There are prominent multifocal osteoarthritis hype rtrophic changes. Scaphoid is foreshortened and its angulation suggests fracture. IMPRESSION: 1. Suspect scaphoid fracture. 2. Multifocal advanced osteophytic spur formation limited visualization of the wrist articulation.
[2022-05-28] MEDS ORDERED: MORPHINE SULFATE 2 MG/ML SYRINGE IVP STA (21:33)
[2022-05-28] MEDS ORDERED: KETOROLAC 15 MG/ML 1 ML VIAL IVP STA (21:33)
[2022-05-29] MEDS ORDERED: ACET/COD 300 MG/30 MG STARTER PACK 6 TAB BTL PO STA (00:39)
[2022-05-29 02:04] VITALS: BP 142/78; PULSE 78
== END 2022-05-29 01:04 | disposition home or self-care (01) ==
LOC: EC 19:33
DX: S62.002A Unspecified fracture of navicular [scaphoid] bone of left wrist, initial encounter for closed fracture (principal); R07.9 Chest pain, unspecified; J44.9 Chronic obstructive pulmonary disease, unspecified; E78.5 Hyperlipidemia, unspecified; F17.200 Nicotine dependence, unspecified, uncomplicated; Z79.899 Other long term (current) drug therapy; X58.XXXA Exposure to other specified factors, initial encounter
CPT/HCPCS: 29125; 99285; 96374; 96375; 36415; 80053; 83735; 84484; 85025; 85610; 85730; 73110; 71046; J2270; J1885

== ENCOUNTER → 2023-07-21 | Outpatient (CLI) | payer BC ==
--- NOTE | 2023-07-21 09:14 | CTL ---
EXAMINATION TYPE: CT Low Dose Lung DATE OF EXAM ORDERED: 07/21/2023 HISTORY: 62-year-old male Z12.2 ENCNTR SCREEN FOR MALIGNANT NEOPLASM F17.210. Current smoker with 84 pack-year history. Lung cancer screening CT DLP: 109.[address] CTDI: 2.9 mGy Automated exposure control for dose reduction was used. SCREENING VISIT: Baseline COMPARISON: CT chest 10/27/2021 TECHNIQUE: Low dose computed tomography scan was performed through the chest with coronal and sagitta l reconstructions. CT DIAGNOSTIC QUALITY: Satisfactory FINDINGS: Heart normal size without pericardial effusion. LAD and RCA coronary artery calcifications. Ectatic ascending aorta 3.8 cm with mild atherosclerotic arch calcifications and conventional branchi ng anatomy. No thoracic lymphadenopathy by CT size criteria. Moderate diffuse bronchial wall thickening. Moderate emphysematous change. Minimal biapical pleural p arenchymal scarring. No consolidation or pleural effusion. A 7 mm subpleural pulmonary nodule lateral right midlung, axial image 165 remains unchanged. No other suspicious pulmonary nodule or mass. Tiny hiatal hernia. Bones: No osseous destructive process. IMPRESSION: 1. LungRADS 2, benign. Stable 7 mm pulmonary nodule right mid lung back to 10/27/2021. 2. COPD with moderate emphysema. Advise smoking cessation. 3. LAD and RCA coronary artery calcifications. 4. Tiny hiatal hernia. CT LUNG RAD AND CT CHEST RECOMMENDATION: Lung-Rad 2 Benign Appearance or Behavior: Continue annual sc reening with LDCT in 12 months. S Modifier (other clinically significant findings): None
== END | disposition home or self-care (01) ==
LOC: RADCTMAIN 07:53
PROVIDERS: ATTEND Family Medicine
DX: Z12.2 Encounter for screening for malignant neoplasm of respiratory organs (principal); J43.9 Emphysema, unspecified; I25.10 Atherosclerotic heart disease of native coronary artery without angina pectoris; K44.9 Diaphragmatic hernia without obstruction or gangrene; F17.210 Nicotine dependence, cigarettes, uncomplicated
CPT/HCPCS: 71271

== ENCOUNTER 2023-09-13 09:59 | Inpatient (IN) | payer BC ==
--- NOTE | 2023-09-13 10:01 | ED ---
Chest Pain HPI - General Stated Complaint: STEMI Time Seen by Provider: 09/13/23 10:00 - History of Present Illness Initial Comments: 62-year-old male with past medical history of coronary artery disease status post 1 stent presents emergency department as a STEMI. Patient was at work. He went into the office to state that he did not feel well and dropped to the ground. Patient did hit his face. AED was put on the patient and the patient was defibrillated twice. CPR was initiated. EMS arrived and the patient was agonal. They shocked him a third time and patient became arousable. He was agitated at first however upon arrival to the hospital is able to answer questions appropriately. States he follows with Dr. Gaffney. He thinks he has 1 stent in his heart. He denies any symptoms at this time. No chest pain. No difficulty breathing. Does take Plavix. Denies any chest pain at this time. Prehospital EKG did demonstrate ST elevation in inferior leads - Related Data Home Medications Medication Instructions Recorded Confirmed Metoprolol Succinate (ER) [Toprol 25 mg PO DAILY 05/28/22 09/13/23 XL] Sildenafil Citrate 100 mg PO DAILY PRN 05/28/22 09/13/23 Acetaminophen Tab [Tylenol] 1,000 mg PO Q6HR PRN 09/13/23 09/13/23 Albuterol Nebulized [Ventolin 2.5 mg INHALATION RT-TID PRN 09/13/23 09/13/23 Nebulized] Atorvastatin [Lipitor] 80 mg PO HS 09/13/23 09/13/23 Previous Rx's Medication Instructions Recorded Aspirin 81 mg PO DAILY #90 tab 11/22/21 Losartan [Cozaar] 50 mg PO DAILY #90 tab 11/22/21 Albuterol Sulfate [Albuterol 1 puff PO Q4-6H #8.5 gm 09/15/23 Sulfate Hfa] Nicotine 21Mg/24Hr Patch [Habitrol] 1 patch TRANSDERM DAILY #30 patch 09/15/23 Nitroglycerin Sl Tabs [Nitrostat] 0.4 mg SUBLINGUAL Q5M PRN #30 tab 09/15/23 Ticagrelor [Brilinta] 90 mg PO BID #60 tab 09/15/23 Allergies Allergy/AdvReac Type Severity Reaction Status Date / Time No Known Allergies Allergy Verified 09/13/23 13:36 Review of Systems ROS Statement: Those systems with pertinent positive or pertinent negative responses have been documented in the HPI. ROS Other: All systems not noted in ROS Statement are negative. Past Medical History Past Medical History: Chest Pain / Angina, COPD, Hyperlipidemia Additional Past Medical History / Comment(s): HX E.D. 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 VASECTOMY Past Anesthesia/Blood Transfusion Reactions: No Reported Reaction Past Psychological History: No Psychological Hx Reported Smoking Status: Current every day smoker Past Alcohol Use History: None Reported Past Drug Use History: None Reported - Past Family History Father Family Medical History: No Reported History General Exam General appearance: alert Head exam: Present: normocephalic, other (Multiple frontal abrasions. No lacerations. No hyphema. No globe injury) Eye exam: Present: normal appearance, PERRL, EOMI. Absent: scleral icterus, conjunctival injection, periorbital swelling ENT exam: Present: normal exam, mucous membranes moist Neck exam: Present: normal inspection. Absent: tenderness, meningismus, lymphadenopathy Respiratory exam: Present: normal lung sounds bilaterally. Absent: respiratory distress, wheezes, rales, rhonchi, stridor Cardiovascular Exam: Present: regular rate, normal rhythm, normal heart sounds. Absent: systolic murmur, diastolic murmur, rubs, gallop, clicks GI/Abdominal exam: Present: soft, normal bowel sounds. Absent: distended, tenderness, guarding, rebound, rigid Extremities exam: Present: normal inspection, full ROM, normal capillary refill. Absent: tenderness, pedal edema, joint swelling, calf tenderness Back exam: Present: normal inspection Neurological exam: Present: alert, oriented X3, CN II-XII intact Psychiatric exam: Present: normal affect, normal mood Skin exam: Present: warm, dry, intact, normal color. Absent: rash Course Vital Signs 09/13/23 09/13/23 09/13/23 09:59 10:08 10:14 Temperature 98 F Pulse Rate 81 74 66 Respiratory 18 16 18 Rate Blood Pressure 111/75 108/50 112/72 O2 Sat by Pulse 98 98 98 Oximetry 09/13/23 09/13/23 09/13/23 12:11 12:15 12:30 Temperature 97.7 F Pulse Rate 68 68 Respiratory 20 26 H 30 H Rate Blood Pressure 126/94 115/77 O2 Sat by Pulse 95 96 Oximetry - Reevaluation(s) Reevaluation #1: 09/13/23 10:39 Spoke with the radiologist who states that there is no bleed Chest Pain MDM - MDM Was pt. sent in by a medical professional or institution (, PA, [employer], urgent care, hospital, or fpc...) When possible be specific @ -No Did you speak to anyone other than the patient for history (EMS, parent, family, police, friend...)? What history was obtained from this source @ -I spoke with EMS for history Did you review nursing and triage notes (agree or disagree)? Why? @ -I reviewed and agree with nursing and triage notes Were old charts reviewed (outside hosp., previous admission, EMS record, old EKG, old radiological studies, urgent care reports/EKG's, fpc records)? Report findings @ -No old charts were reviewed Differential Diagnosis (chest pain, altered mental status, abdominal pain women, abdominal pain men, vaginal bleeding, weakness, fever, dyspnea, syncope, headache, dizziness, GI bleed, back pain, seizure, CVA, palpatations, mental health, musculoskeletal)? @ -Differential Chest Pain: Stable Angina, Unstable Angina, STEMI, NSTEMI Aortic Dissection, Pneumothorax, Musculoskeletal, Esophageal Spasm GERD, Cholecystitis, Pancreatitis, Zoster, this is not meant to be an all-inclusive list. EKG interpreted by me (3pts min.). @ -Yes and demonstrates sinus rhythm with a rate of 88. Parable 136. QRS 94. QTc of 424. ST segment elevation in 2, 3, aVF. Reciprocal changes V4 through V6 X-rays interpreted by me (1pt min.). @ -Yes and demonstrates no acute process CT interpreted by me (1pt min.). @ -Yes and demonstrates no acute process U/S interpreted by me (1pt. min.). @ -None done What testing was considered but not performed or refused? (CT, X-rays, U/S, labs)? Why? @ -None What meds were considered but not given or refused? Why? @ -None Did you discuss the management of the patient with other professionals (professionals i.e. , PA, [employer], lab, RT, psych nurse, social media executive, customs officer, te acher, personal banking officer, pillowcase sewer)? Give summary @ -Spoke with Dr. Huang for admission Was smoking cessation discussed for >3mins.? @ -No Was critical care preformed (if so, how long)? @ -Yes, 40 minutes for STEMI management Were there social determinants of health that impacted care today? How? (Homelessness, low income, unemployed, alcoholism, drug addiction, transportation, low edu. Level, literacy, decrease access to med. care, fpc, rehab)? @ -No Was there de-escalation of care discussed even if they declined (Discuss DNR or withdrawal of care, Hospice)? DNR status @ -No What co-morbidities impacted this encounter? (DM, HTN, Smoking, COPD, CAD, Cancer, CVA, ARF, Chemo, Hep., AIDS, mental health diagnosis, sleep apnea, morbid obesity)? @ -Coronary artery disease Was patient admitted / discharged? Hospital course, mention meds given and route, prescriptions, significant lab abnormalities, going to OR and other pertinent info. @ -Yes upon arrival patient was seen and evaluated in room trauma 1. Thorough history and physical exam was performed. Patient does present as a STEMI with V-fib arrest. He arrives with pulses and able to speak. He does have visible head trauma. Laboratory studies are conducted and patient goes for CT of his head. He has been immediately taken upstairs. Heparin is held by myself. Spoke with the [facility] who will administer heparin when the patient CT is negative. CT was read by the radiologist and was interpreted as negative for any acute injury. This is relayed to the Director [facility] who then proceeded with the cardiac cath. I spoke with Dr. Ratliff for admission. Undiagnosed new problem with uncertain prognosis? @ -No Drug Therapy requiring intensive monitoring for toxicity (Heparin, Nitro, Insulin, Cardizem)? @ -No Were any procedures done? @ -No Diagnosis/symptom? @ -Acute V-fib arrest, acute STEMI Acute, or Chronic, or Acute on Chronic? @ -acute Uncomplicated (without systemic symptoms) or Complicated (systemic symptoms)? @ -complicated Side effects of treatment? @ -No Exacerbation, Progression, or Severe Exacerbation? @ -No Poses a threat to life or bodily function? How? (Chest pain, [place], ID, pneumonia, PE, COPD, DKA, ARF, appy, cholecystitis, CVA, Diverticulitis, Homicidal, Suicidal, threat to staff... and all critical care pts) @ -yes as patient did arrest on scene Disposition Clinical Impression: Cardiac arrest, Ventricular fibrillation, STEMI (ST elevation myocardial infarction) Disposition: ADMITTED IP TO THIS [facility] Condition: Fair Is patient prescribed a controlled substance at d/c from ED?: No Time of Disposition: 10:33 Decision to Admit Reason: Admit from EC Decision Date: 09/13/23 Decision Time: 10:33
[2023-09-13] MEDS ORDERED: fentaNYL (PF) 50 MCG/ML 2 ML AMP ONE (10:07)
[2023-09-13 10:12] LABS: Basophils % (A) 0 %; Eosinophils # (A) 0.2 k/uL (0-0.7); Eosinophils % (A) 2 %; HCT 45.2 % (39.0-53.0); HGB 15.1 gm/dL (13.0-17.5); Lymphocytes # (A) 3.2 k/uL (1.0-4.8); Lymphocytes % (A) 37 %; MCH 32.5 pg (25.0-35.0); MCHC 33.5 g/dL (31.0-37.0); MCV 97.2 fL (80.0-100.0); Mean Platelet Volume 7.6; Monocytes # (A) 0.5 k/uL (0-1.0); Monocytes % (A) 5 %; Neutrophils # (A) 4.6 k/uL (1.3-7.7); Neutrophils % (A) 52 %; Platelet Count 224 k/uL (150-450); RBC 4.65 m/uL (4.30-5.90); RDW 13.3 % (11.5-15.5); WBC 8.9 k/uL (3.8-10.6)
[2023-09-13 10:24] LABS: Potassium 3.7 mmol/L (3.5-5.1)
[2023-09-13 10:25] LABS: ALT 148 U/L (4-49); AST 155 U/L (17-59); African American GFR (CKD) >90 (>60 ml/min/1.73 sqM); Albumin 3.9 g/dL (3.5-5.0); Alcohol <10 mg/dL; Alkaline Phosphatase 76 U/L (38-126); Anion Gap 13 mmol/L; Blood Urea Nitrogen 17 mg/dL (9-20); Calcium 8.7 mg/dL (8.4-10.2); Carbon Dioxide 16 mmol/L (22-30); Chloride 111 mmol/L (98-107); Glucose 196 mg/dL (74-99); Magnesium 1.9 mg/dL (1.6-2.3); Non-African American GFR(CKD) >90 (>60 ml/min/1.73 sqM); Sodium 140 mmol/L (137-145); Total Bilirubin 0.6 mg/dL (0.2-1.3); Total Protein 6.3 g/dL (6.3-8.2)
[2023-09-13 10:28] LABS: INR 0.9 (<1.2); Prothrombin Time 9.9 sec (10.0-12.5)
[2023-09-13] MEDS ORDERED: HEPARIN SODIUM 1,000 UN/ML (10ML VL) ONE (10:28)
[2023-09-13] MEDS ORDERED: ASPIRIN 325 MG TAB ONE (10:28)
--- NOTE | 2023-09-13 10:30 | XR ---
EXAMINATION TYPE: XR chest 1V portable DATE OF EXAM: 09/13/2023 Comparison: 05/28/2022 Clinical History: 62-year-old male chest pain Findings: The heart is upper limits of normal in size. Interstitial densities appear to have increased. No sam k consolidation or pleural effusion. Impression: Interstitial densities appear to have increased. Consider bronchitis or atypical pneumonias.
[2023-09-13] MEDS ORDERED: NALOXONE 0.4 MG/ML 1 ML VIAL IV PRN (10:34)
[2023-09-13] MEDS: IV FLUID CONTINUATION 1,000 ML IV ONE (10:37)
--- NOTE | 2023-09-13 10:38 | CT ---
EXAMINATION TYPE: CT brain arian wo con DATE OF EXAM: 09/13/2023 COMPARISON: None HISTORY: 62-year-old male head injury, STEMI. pt collapsed and hit head. Bloody forehead. CT DLP: 1538.1 mGycm Automated exposure control for dose reduction was used. Technique: Examination of the head was done in axial plane without intravenous contrast. Coronal and sagittal reconstructions performed. CT of the cervical spine was obtained in axial plane without intravenous injection of contrast mater ial. Coronal and sagittal reformatted images were obtained from the axial views for evaluation of f ractures, spinal alignment and canal. FINDINGS: Head: Mild frontal scalp congestion There is no evidence of acute intracranial hemorrhage, acute ischemic changes, mass, mass-effect, or extra-axial fluid collection. There is no effacement of cerebral sulci or basal subarachnoid cister ns. There is no hydrocephalus. There is no midline shift. Smalls-white matter distinction is preserv ed. Leftward nasal septal deviation. Mild mucosal thickening ethmoid air cells. Mastoid air cells and orb its and globes appear clear. Cervical spine: No craniocervical junction appear mildly, predental space widening, or prevertebral soft tissue swell ing. Moderate spondylotic changes present throughout. No acute fracture of the cervical spine. Alignment is maintained. Disc ossified complex contributes to moderate spinal canal stenoses at C5-C6 and C6/C7. Moderate to severe right neuroforaminal stenosis that C5-C6 and on both sides at C6-C7. Groundglass and emphysematous change in the visualized upper lungs. Sagittal and coronal reformatted images confirm above findings. COMBINED IMPRESSION: 1. Mild frontal scalp contusion. No acute intracranial abnormality seen. 2. No acute fracture or malalignment of the cervical spine. Moderate spondylotic change as above. 3. Groundglass and emphysematous change in the upper lungs. Correlate to exclude any underlying pneum onitis or CHF.
[2023-09-13] MEDS: ASPIRIN 325 MG TAB PO ONE (10:41)
[2023-09-13] MEDS: LIDOCAINE 1% INJ 10MG/ML (30 ML VIAL-PF) SQ ONE (10:46)
[2023-09-13] MEDS: HEPARIN SODIUM 1,000 UN/ML (10ML VL) IVP ONE ×2 (10:50→11:24)
[2023-09-13 10:56] LABS: Partial Thromboplastin Time 21.4 sec (22.0-30.0)
[2023-09-13] MEDS: IOPAMIDOL-370 100ML BTL INJ ONE ×2 (11:11→11:40)
[2023-09-13] MEDS ORDERED: TICAGRELOR 90 MG TAB ONE (11:30)
[2023-09-13] MEDS: TICAGRELOR 90 MG TAB PO ONE (11:31)
[2023-09-13 12:14] LABS: Glucose,Whole Blood 97 mg/dL (70-110)
[2023-09-13] MEDS ORDERED: RX INFO: IV CONTRAST WAS GIVEN 1 EACH MISC MISCELLANE PRN (12:19)
[2023-09-13] MEDS ORDERED: ATROPINE SULFATE 0.1 MG/ML 10ML SYRINGE IV PRN (12:19)
[2023-09-13] MEDS ORDERED: NITROGLYCERIN SL TABS 0.4 MG TAB SUBLINGUAL PRN (12:19)
[2023-09-13] MEDS ORDERED: ZOLPIDEM 5 MG TAB PO PRN (12:19)
[2023-09-13] MEDS ORDERED: MAG HYDROX/AL HYDROX/SIMETH 30 ML CUP PO PRN (12:19)
[2023-09-13] MEDS: NICOTINE 14MG/24HR PATCH TRANSDERM SCH (12:47)
[2023-09-13] MEDS: SODIUM CHLORIDE 0.9% 1,000 ML in EMPTY BAG 1 BAG IV SCH (12:48)
--- NOTE | 2023-09-13 13:20 | CC ---
CARDIAC CATHETERIZATION REPORT PROCEDURES PERFORMED: 1. Left heart catheterization and coronary angiography. 2. PTCA and stenting of mid RCA and PDA branch of RCA with drug-eluting stents. 3. PTCA and stenting of proximal codominant circumflex coronary artery. 4. Intravascular ultrasound of circumflex coronary artery. PERFORMED BY: Dr. Cheri Gaffney. ANESTHESIA: Moderate conscious sedation time was 56 minutes. The patient was administered Versed. Oxygen saturation, hemodynamics, and EKG were monitored closely. CLINICAL INFORMATION: Mr. Lui Rondon is a 62-year-old gentleman with a history of hypertension, hyperlipidemia, CAD, underwent stenting of proximal LAD, proximal LAD performed in November 2021. At that time, circumflex vessel had moderate disease and IFR did not reveal any significant abnormalities. He also had a right coronary that was codominant, but had no critical stenosis. He continues to smoke after his PCI. He was at work and he did not feel well and then suddenly he fell down, hit his face on the ground. He basically collapsed and EMS arrived. AED was put and he was defibrillated twice. CPR was initiated, but then he recovered and was brought here. There is inferior ST-elevation and patient hit his head quite hard and a CAT scan of the head was performed prior to any intervention and therefore there was a delay for the PCU for the STEMI intervention. Clinical picture was that of a STEMI with a fall and on his head. CAT scan did not reveal any bleed and then I promptly proceeded with cardiac cath and PCI. This patient had stenting of LAD performed in November 2021. PROCEDURE NOTE: Under strict aseptic precautions and local anesthesia, a 6-Uzbek introducer was placed in the right radial artery. I started off with the right Dewey guide catheter of 4.0 curve and a 6-Uzbek caliber. Study revealed a mid RCA lesion of about 90% and the PDA was subtotally occluded. I performed PCI of the mid RCA as well as the PDA and then performed coronary angiography and noted the proximal circumflex was also tight at 90% to 95%. LAD was widely patent at the site of stenting with the diagonal disease and diagonal was a small caliber vessel. I performed stenting of the proximal circumflex and then intravascular ultrasound. The sheath was then taken out and TR band applied with a saturation the fingers of the right hand of 94%. Patient was sent to the room in a stable condition. Results were discussed with the patient as well as his and other family members. CARDIAC CATHETERIZATION FINDINGS: The left ventricular end-diastolic pressure was about 9 mmHg. The right Dewey catheter was used to check LV pressures. There was no gradient across aortic valve. The gradient, if any, was less than 10 mm. I performed coronary angiography with right Dewey guide catheter and then with left 3.5 catheters. CORONARY ANGIOGRAPHY FINDINGS: Right Coronary Artery: This is a codominant vessel, has proximal lesion of about 40%, mid lesion of 80% to 90%. Distally, the PDA is subtotally occluded with sluggish flow and some thrombus in the PDA. Right coronary artery has a conus branch, which is very large and has minor irregularities, no significant disease. Conus branch comes very proximally, almost like a separate origin from the RCA. Left ventriculogram was not performed. Left Main Coronary Artery: This is a short patent vessel, free of significant disease. Bifurcates into LAD and circumflex. Left Anterior Descending Coronary Artery: Good caliber vessel, gives off a diagonal branch proximally, which has some diffuse disease. LAD itself is widely patent with good flow. At the site of stenting, there is no significant disease beyond it and gives off a large diagonal branch and runs all the way to the apex supplying a sizable amount of myocardium. LAD is relatively disease free except the first diagonal which has some diffuse disease. Left Posterior Circumflex Coronary Artery: This is a codominant vessel, but the PDA comes actually from the RCA, proximally there is a 95% stenosis after which an obtuse marginal branch comes off and then AV groove branch and distal post lateral branch. There is no other significant disease. OM has about a 40% and continuation of circumflex beyond the OM also has a 40% narrowing but proximal circumflex has a 90% eccentric lesion. FINAL IMPRESSION: This patient has normal filling pressures. A codominant system with PDA coming from the RCA. Mid/proximal RCA has a 90% and PDA branch of RCA subtotally occluded with thrombus. This is the culprit lesion. Codominant circumflex has a proximal 90% lesion. LAD at the site of previous stenting is patent. Diagonal has some diffuse disease. There is no significant gradient across aortic valve. RECOMMENDATIONS: I performed PCI of RCA and then of proximal circumflex and intravascular ultrasound of circumflex expeditiously. PCI PROCEDURE DETAILS: I used a standard right Dewey guide catheter and a run-through wire. Wire was kept distally in the PDA branch. I used a 2.25 caliber 12 mm NC Trek balloon and pre- dilated the PDA and the same balloon was used to pre-dilate the mid RCA. I deployed a 15 mm long 2.25 caliber Xience stent in the PDA with excellent result. I used a 3.5 caliber 12 mm long Xience stent. Excellent angiographic result was achieved. I then performed circumflex PCI. I used a JL3.5 guide catheter and the same run-through wire was used. A 3.58 mm long NC Trek balloon was used to pre-dilate the lesion. I deployed a 4.0 caliber 8 mm Xience stent. I performed intravascular ultrasound, which revealed that the distal stent was not fully expanded. I used a 4.5 caliber 8 mm long NC Trek balloon and postdilated the entire stent with excellent angiographic result. Patient tolerated procedure well. ACT was about 251. He received a total of 7500 units of heparin. He also received Brilinta 180 mg. He will be on aspirin and Brilinta combination without interruption for 1 year. The patient was sent to the ICU in a stable condition. Moderate conscious sedation time was 56 minutes. MMODL / IJN: [id number] /
--- NOTE | 2023-09-13 14:23 | P.CRDCN ---
History of Present Illness Consult date: 09/13/23 Reason for Consult (text): STEMI History of present illness: History of present illness: This is a 70-year-old male patient of Dr. BONNIE Gaffney with past medical history of coronary artery disease status post PCI of the LAD in November 2021, hypertension, hyperlipidemia, COPD, chronic tobacco use and dependence. We have been asked to evaluate the patient for STEMI. Patient apparently was at work this morning and was not feeling well went into the office and collapsed and hit the left side of his face. AED was applied and patient received 2 shocks followed by CPR. He received approximately 5 minutes of CPR until EMS arrived. Patient was found to be in V-fib and received a third shock. This converted him to sinus rhythm and initial EKG by EMS showed ST elevation, STEMI alert was called. Patient was initially combative and as his mental status improved, patient became more cooperative. Patient was taken urgently to the Glue Spreading Machine Operator. EKG Chest x-ray: Interstitial densities appear to have increased. Consider bronchitis or atypical pneumonias. CT of the brain and cervical spine revealed mild frontal scalp contusion. No intracranial abnormality. No fracture or malalignment of the cervical spine. Emphysematous changes in the upper lungs. CBC unremarkable. INR 0.9. Potassium 3.7, creatinine 0.89. AST 155, ALT 148. Troponin negative x 1. Serum alcohol level less than 10. Home cardiac medications: Amlodipine 2.5 mg daily, aspirin 81 mg daily, atorvastatin 80 mg at bedtime, Plavix 75 mg at bedtime, losartan 50 mg daily, Toprol-XL 25 mg daily. Review Of Systems: At the time of my exam: CONSTITUTIONAL: Denies fever or chills. HEENT: Denies blurred vision, vision changes, or eye pain. Denies hemoptysis CARDIOVASCULAR: Reports chest pain. Denies orthopnea. Denies PND. Denies palpitations RESPIRATORY: Denies shortness of breath. GASTROINTESTINAL: Denies abdominal pain. Denies nausea or vomiting. HEMATOLOGIC: Denies bleeding disorders. GENITOURINARY: Denies any blood in urine. SKIN: Denies pruitis. Denies rash. Physical examination: Gen: This is a 62-year-old male in no acute distress VS: reviewed HEENT: Head has hematoma to the left forehead, normocephalic. Pupils equal, round. Sclerae is anicteric. NECK: Supple. No JVD. LUNGS: Clear to auscultation. No wheezes or rhonchi. No intercostal retractions. HEART: Regular rate and rhythm. No murmur. ABDOMEN: Soft No tenderness. EXTREMITIES: No pedal edema. No calf tenderness. NEUROLOGICAL: Patient is awake, alert and oriented x3. Assessment: Inferior ST elevated NM Syncopal episode due to NM Closed head injury Coronary artery disease status post PCI of the LAD in 2021 Hypertension Hyperlipidemia COPD Tobacco use and dependence Plan: Patient taken urgently to the Glue Spreading Machine Operator Obtain 2-D echocardiogram and Doppler study to assess cardiac structure and function Further recommendations to follow based upon clinical course Thank you kindly for this consultation. Nurse practitioner note has been reviewed, I agree with documented findings and plan of care. Patient was seen and examined. Past Medical History Past Medical History: Chest Pain / Angina, COPD, Hyperlipidemia Additional Past Medical History / Comment(s): HX E.D. 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 VASECTOMY Past Anesthesia/Blood Transfusion Reactions: No Reported Reaction Past Psychological History: No Psychological Hx Reported Smoking Status: Current every day smoker Past Alcohol Use History: None Reported Past Drug Use History: None Reported - Past Family History Father Family Medical History: No Reported History Medications and Allergies Home Medications Medication Instructions Recorded Confirmed Type Aspirin 81 mg PO DAILY #90 tab 11/22/21 09/13/23 Rx Losartan [Cozaar] 50 mg PO DAILY #90 tab 11/22/21 09/13/23 Rx Metoprolol Succinate (ER) [Toprol 25 mg PO DAILY 05/28/22 09/13/23 History Xl] Sildenafil Citrate 100 mg PO DAILY PRN 05/28/22 09/13/23 History Acetaminophen Tab [Tylenol Tab] 1,000 mg PO Q6HR PRN 09/13/23 09/13/23 History Albuterol Nebulized [Ventolin 2.5 mg INHALATION RT-TID PRN 09/13/23 09/13/23 History Nebulized] Atorvastatin [Lipitor] 80 mg PO HS 09/13/23 09/13/23 History Clopidogrel [Plavix] 75 mg PO HS 09/13/23 09/13/23 History amLODIPine [Norvasc] 2.5 mg PO DAILY 09/13/23 09/13/23 History Allergies Allergy/AdvReac Type Severity Reaction Status Date / Time No Known Allergies Allergy Verified 09/13/23 13:36 Physical Exam Vitals: Vital Signs Temp Pulse Resp BP Pulse Ox 09/13/23 09:59 98 F 81 18 111/75 98 Intake and Output 09/12/23 09/13/23 09/13/23 22:59 06:59 14:59 Other: Weight 77.111 kg Results 09/13/23 10:00 09/13/23 10:08 Intake and Output 09/12/23 09/13/23 09/13/23 22:59 06:59 14:59 Other: Weight 77.111 kg Patient Weight 09/14/23 06:59 Weight 77.111 kg
[2023-09-13] MEDS ORDERED: LACTULOSE 20 GM/30 ML CUP PO PRN (15:32)
[2023-09-13] MEDS ORDERED: LORazepam 0.5 MG TAB PO PRN (15:32)
[2023-09-13] MEDS ORDERED: ONDANSETRON 4 MG/2 ML VIAL IVP PRN (15:32)
[2023-09-13] MEDS ORDERED: TEMAZEPAM 15 MG CAP PO PRN (15:32)
--- NOTE | 2023-09-13 15:35 | P.HPIM ---
History of Present Illness H&P Date: 09/13/23 Chief Complaint: Chest pain This is a pleasant 62-year-old patient, follows with Dr. Peña. Chronic stable medical conditions include COPD, hyperlipidemia, erectile dysfunction, and has prior cardiac catheterization with stent in November 2021. Follows with cardiology Dr. BONNIE Gaffney. Patient continues to smoke. This morning patient went to work and has been having chest pressure this morning. Also felt a bit little light headed. He had called into work. Was n ot feeling well and then he dropped to the ground on his face. AED was pronounced on him and he was defibrillated twice. CPR was started. When EMS arrived patient was agonal. He was shocked for the third time. And he was arousable. On way to the hospital he started answering questions appropriately. Out of hospital EKG showed ST elevation. Patient was taken urgently to the cardiac Senior Tax Accountant. Angioplasty stenting of the mid RCA and PDA branch of RCA was done with EDITA. Also proximal codominant circumflex coronary artery was stented. Postprocedure patient was taken to the ICU. Chest pain-free. Patient's son and daughter at the bedside. 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 Alcohol rarely. Physical examination: VITAL SIGNS: 97.7, 72, 18, 116/61, 98% room air GENERAL: BMI 23.7, reclining bed awake tired appearing. EYES: Pupils equal. Conjunctiva lakeshia l. HEENT: External appearance of nose and ears normal, oral cavity grossly normal. Some laceration to left forehead. With surrounding bruising NECK: JVD not raised; masses not palpable. HEART: First and second heart sounds are normal; no edema. LUNGS: Respiratory rate normal; diminished breath sounds. ABDOMEN: Soft, nontender, liver spleen not palpable, no masses palpable. PSYCH: Alert and oriented x3; mood and affect lakeshia l. MUSCULOSKELETAL:No Clubbing/cyanosis;muscles-grossly intact NEUROLOGICAL: Cranial nerves grossly intact; no facial asymmetry, power and sensation grossly intact. LYMPHATICS: No lymph nodes palpable in the axilla and neck INVESTIGATIONS, reviewed in the clinical context: September 13, 2023: White count 8.9 hemoglobin 15.1 platelets 224 sodium 140 potassium 3.7 BUN 17 creatinine 0.89 AST 155 ALT 148 Serum alcohol less than 10 EKG tracing personally reviewed by me-ST elevation inferior leads. And depression in lateral leads. Sinus rhythm Chest x-ray film personally reviewed by me-hyperinflation CT scan head and neck: Emphysematous changes. Mild frontal scalp contusion. Assessment plan: -Acute ST elevation inferior wall myocardial infarction Patient was taken to the cardiac Senior Tax Accountant urgently -CAD with prior stent in 2021. Patient follows with business services associate Dr. BONNIE Gaffney Angioplasty stenting of the mid RCA and PDA branch of RCA was done with EDITA. Also proximal codominant circumflex coronary artery was stented. Aspirin. Lipitor. Brilinta. -COPD and a current smoker DuoNeb 3 times daily -Erectile dysfunction -Left forehead contusion secondary to fall Bacitracin ointment -Chronic nicotine dependence cigarette smoker Nicotine patch 21 -Essential hypertension Cozaar. Amlodipine. Toprol-XL. -Full code Care was discussed with the patient. Questions answered. Follow with cardiology. Past Medical History Past Medical History: Chest Pain / Angina, COPD, Hyperlipidemia Additional Past Medical History / Comment(s): HX E.D. 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 VASECTOMY Past Anesthesia/Blood Transfusion Reactions: No Reported Reaction Date of Last Stent Placement:: 11/2021 Past Psychological History: No Psychological Hx Reported Smoking Status: Current every day smoker Past Alcohol Use History: None Reported Past Drug Use History: None Reported - Past Family History Father Family Medical History: No Reported History Medications and Allergies Home Medications Medication Instructions Recorded Confirmed Type Aspirin 81 mg PO DAILY #90 tab 11/22/21 09/13/23 Rx Losartan [Cozaar] 50 mg PO DAILY #90 tab 11/22/21 09/13/23 Rx Metoprolol Succinate (ER) [Toprol 25 mg PO DAILY 05/28/22 09/13/23 History Xl] Sildenafil Citrate 100 mg PO DAILY PRN 05/28/22 09/13/23 History Acetaminophen Tab [Tylenol Tab] 1,000 mg PO Q6HR PRN 09/13/23 09/13/23 History Albuterol Nebulized [Ventolin 2.5 mg INHALATION RT-TID PRN 09/13/23 09/13/23 History Nebulized] Atorvastatin [Lipitor] 80 mg PO HS 09/13/23 09/13/23 History Clopidogrel [Plavix] 75 mg PO HS 09/13/23 09/13/23 History amLODIPine [Norvasc] 2.5 mg PO DAILY 09/13/23 09/13/23 History Allergies Allergy/AdvReac Type Severity Reaction Status Date / Time No Known Allergies Allergy Verified 09/13/23 13:36 Physical Exam Vitals: Vital Signs Temp Pulse Resp BP Pulse Ox 09/13/23 14:00 72 18 116/61 98 09/13/23 13:00 81 25 H 115/77 97 09/13/23 12:45 71 20 115/77 96 09/13/23 12:30 68 30 H 115/77 96 09/13/23 12:15 97.7 F 68 26 H 126/94 95 09/13/23 12:11 20 09/13/23 10:14 66 18 112/72 98 09/13/23 10:08 74 16 108/50 98 09/13/23 09:59 98 F 81 18 111/75 98 Intake and Output 09/13/23 09/13/23 09/13/23 06:59 14:59 22:59 Intake Total 1125 Balance 1125 Intake: IV 1125 0.9 225 Other: Voiding Method Toilet # Voids 1 Weight 77.111 kg Results CBC & Chem 7: 09/13/23 10:00 09/13/23 10:08 Labs: Abnormal Lab Results - Last 24 Hours (Table) 09/13/23 09/13/23 Range/Units 10:00 10:08 PT 9.9 L (10.0-12.5) sec APTT 21.4 L (22.0-30.0) sec Chloride 111 H (98-107) mmol/L Carbon Dioxide 16 L (22-30) mmol/L Glucose 196 H (74-99) mg/dL AST 155 H (17-59) U/L ALT 148 H (4-49) U/L Thrombosis Risk Factor Assmnt - Choose All That Apply Any of the Below Risk Factors Present?: Yes Each Factor Represents 1 point: Abnormal pulmonary function (COPD), Acute [facility] Other Risk Factors: No Other congenital or acquired thrombophilia - If yes, enter type in comment: No Thrombosis Risk Factor Assessment Total Risk Factor Score: 2 Thrombosis Risk Factor Assessment Level: Low Risk
[2023-09-13] MEDS: NICOTINE 21MG/24HR PATCH TRANSDERM SCH (16:15)
[2023-09-13] MEDS: METOPROLOL TARTRATE 25 MG TAB PO SCH (16:16)
[2023-09-13] MEDS: BACITRACIN OINT 1 EACH PACKET TOPICAL SCH (16:17)
[2023-09-13] MEDS: IPRATROPIUM-ALBUTEROL 3 ML NEB INHALATION SCH (16:17)
[2023-09-13] MEDS: ACETAMINOPHEN TAB 325 MG TAB PO PRN (16:20)
[2023-09-13] MEDS: ENOXAPARIN 40 MG/0.4 ML SYRINGE SQ SCH (16:28)
--- NOTE | 2023-09-13 19:49 | CA ---
Transthoracic Echo Report Name: Lui Rondon Age: 62 Gender: M : 1960 Exam Date: 09/13/2023 12:56 Exam Location: [facility] Ht (in): 71 Wt (lb): 170 Ordering Physician: Jyothi Gaffney MD ([id number]) Attending/Referring Phys: Operations Executive Safia Billings RCS Procedure CPT: Indications: LVEF post VT Cardiac Hx: Technical Quality: Technically difficult study Contrast 1: Definity Total Dose (mL): 2 Contrast 2: Total Dose (mL): MEASUREMENTS (Male / Female) Normal Values 2D ECHO LV Diastolic Diameter PLAX 4.8 cm 4.2 - 5.9 / 3.9 - 5.3 cm LV Systolic Diameter PLAX 3.6 cm IVS Diastolic Thickness 1.0 cm 0.6 - 1.0 / 0.6 - 0.9 cm LVPW Diastolic Thickness 1.2 cm 0.6 - 1.0 / 0.6 - 0.9 cm LV Relative Wall Thickness 0.4 LVOT Diameter 1.9 cm Aortic Root Diameter 3.1 cm LV Diastolic Volume MOD BP 142.5 cm??? 67 - 155 / 56 - 104 cm??? LV Systolic Volume MOD BP 61.1 cm??? 22 - 58 / 19 - 49 cm??? LV Ejection Fraction MOD BP 57.1 % >= 55 % LV Cardiac Index MOD BP 2852.7 cm???/min???m??? LV Diastolic Volume MOD 4C 143.8 cm??? LV Systolic Volume MOD 4C 67.1 cm??? LV Ejection Fraction MOD 4C 53.3 % LV Cardiac Index MOD 4C 2687.0 cm???/min???m??? LV Diastolic Length 4C 9.6 cm LV Systolic Length 4C 7.8 cm LV Diastolic Volume MOD 2C 137.5 cm??? LV Systolic Volume MOD 2C 48.6 cm??? LV Ejection Fraction MOD 2C 64.7 % LV Cardiac Index MOD 2C 3117.2 cm???/min???m??? LV Diastolic Length 2C 9.3 cm LV Systolic Length 2C 6.7 cm Ascending Aorta Diameter 3.2 cm DOPPLER AV Peak Velocity 156.1 cm/s AV Peak Gradient 9.8 mmHg AV Mean Velocity 110.3 cm/s AV Mean Gradient 5.4 mmHg AV Velocity Time Integral 28.7 cm LVOT Peak Velocity 109.0 cm/s LVOT Peak Gradient 4.8 mmHg LVOT Velocity Time Integral 23.0 cm LVOT Stroke Volume 68.3 cm??? LVOT Stroke Volume Index 34.7 ml/m??? LVOT Cardiac Index 2395.0 cm???/min???m??? AV Area Cont Eq vti 2.4 cm??? AV Area Cont Eq pk 2.1 cm??? Mitral E Point Velocity 82.0 cm/s Mitral A Point Velocity 59.7 cm/s Mitral E to A Ratio 1.4 MV Deceleration Time 191.1 ms MV E' Velocity 8.2 cm/s Mitral E to MV E' Ratio 10.0 PV Peak Velocity 95.6 cm/s PV Peak Gradient 3.7 mmHg FINDINGS Left Ventricle Left ventricular ejection fraction is estimated at 50-55 %. Mildly increased left ventricular systolic volume. Left ventricular wall thickness normal. No obvious regional wall motion abnormalities. Right Ventricle Normal right ventricular size and function. Unable to estimate the right ventricular systolic pressure. Right Atrium Normal right atrial size. Left Atrium Normal left atrial size. Mitral Valve Structurally normal mitral valve. No evidence for mitral valve prolapse. No mitral stenosis. Trace mitral regurgitation. Aortic Valve Trileaflet aortic valve. No aortic valve stenosis or regurgitation. Tricuspid Valve Structurally normal tricuspid valve. No tricuspid stenosis. No tricuspid regurgitation. Pulmonic Valve Structurally normal pulmonic valve. No pulmonic regurgitation. No pulmonic stenosis. Pericardium No pericardial effusion. Aorta Normal size aortic root and proximal ascending aorta. CONCLUSIONS Normal LV size and systolic function Previewed by: Dr. Frederick Mtz MD (Electronically Signed) Final Date: 13 September 2023 19:48
[2023-09-13] MEDS: TICAGRELOR 90 MG TAB PO SCH (21:02)
[2023-09-14 06:09] LABS: Basophils % (A) 0 %; Eosinophils # (A) 0.2 k/uL (0-0.7); Eosinophils % (A) 2 %; HCT 39.1 % (39.0-53.0); HGB 12.8 gm/dL (13.0-17.5); Lymphocytes # (A) 1.3 k/uL (1.0-4.8); Lymphocytes % (A) 14 %; MCH 31.4 pg (25.0-35.0); MCHC 32.6 g/dL (31.0-37.0); MCV 96.2 fL (80.0-100.0); Mean Platelet Volume 7.8; Monocytes # (A) 0.6 k/uL (0-1.0); Monocytes % (A) 6 %; Neutrophils # (A) 6.8 k/uL (1.3-7.7); Neutrophils % (A) 75 %; Platelet Count 138 k/uL (150-450); RBC 4.07 m/uL (4.30-5.90); RDW 13.3 % (11.5-15.5)
[2023-09-14 06:26] LABS: African American GFR (CKD) >90 (>60 ml/min/1.73 sqM); Anion Gap 6 mmol/L; Blood Urea Nitrogen 9 mg/dL (9-20); Calcium 8.2 mg/dL (8.4-10.2); Carbon Dioxide 21 mmol/L (22-30); Chloride 113 mmol/L (98-107); Glucose 105 mg/dL (74-99); Non-African American GFR(CKD) >90 (>60 ml/min/1.73 sqM); Potassium 3.7 mmol/L (3.5-5.1); Sodium 140 mmol/L (137-145)
[2023-09-14] MEDS: ASPIRIN 81 MG PO SCH (08:09)
[2023-09-14] MEDS: ATORVASTATIN 80 MG TAB PO SCH (08:09)
[2023-09-14] MEDS ORDERED: LOSARTAN 50 MG TAB PO SCH (09:00)
[2023-09-14] MEDS: LOSARTAN 50 MG TAB PO SCH (10:28)
[2023-09-14 12:00] VITALS: BMI 25.0
--- NOTE | 2023-09-14 15:25 | P.PN ---
Progress Note - Text Progress Note Date: 09/14/23 Chief Complaint: Chest pain This is a pleasant 62-year-old patient, follows with Dr. Peña. Chronic stable medical conditions include COPD, hyperlipidemia, erectile dysfunction, and has prior cardiac catheterization with stent in November 2021. Follows with ca rdiology Dr. BONNIE Gaffney. Patient continues to smoke. This morning patient went to work and has been having chest pressure this morning. Also felt a bit little light headed. He had called into work. Was not feeling well and then he dropped to the ground on his face. AED was pronounced on him and he was defibrillated twice. CPR was started. When EMS arrived patient was agonal. He was shocked for the third time. And he was arousable. On way to the hospital he started answering questions appropriately. Out of hospital EKG showed ST elevation. Patient was taken urgently to the cardiac News Gathering Technician. Angioplasty stenting of the mid RCA and PDA branch of RCA was done with EDITA. Also proximal codominant circumflex coronary artery was stented. Postprocedure patient was taken to the ICU. Chest pain-free. Patient's son and daughter at the bedside. September 13: Patient ICU. Up in the chair. Has been up to the bathroom. No chest pain or short of breath. 2D echo shows preserved LV function. No obvious wall motion abnormality. Have asked the patient to ambulate in the hallway. Will order liver ultrasound in view of elevated LFTs yesterday. Could be from ischemic liver from patient passing out. Active Medications Acetaminophen (Acetaminophen Tab 325 Mg Tab) 650 mg PO Q6HR PRN PRN Reason: Mild Pain or Fever > 100.5 Last Admin: 09/14/23 08:09 Dose: 650 mg Al Hydroxide/Mg Hydroxide (Mag Hydrox/Al Hydrox/Simeth 30 Ml Cup) 30 ml PO Q4HR PRN PRN Reason: Heartburn Albuterol/Ipratropium (Ipratropium-Albuterol 3 Ml Neb) 3 ml INHALATION RT-TID [facility] Last Admin: 09/14/23 13:53 Dose: Not Given Aspirin (Aspirin 81 Mg) 81 mg PO DAILY [facility] Last Admin: 09/14/23 08:09 Dose: 81 mg Atorvastatin Calcium (Atorvastatin 80 Mg Tab) 80 mg PO DAILY [facility] Last Admin: 09/14/23 08:09 Dose: 80 mg Atropine Sulfate (Atropine Sulfate 0.1 Mg/Ml 10ml Syringe) 0.5 mg IV ONCE PRN PRN Reason: Symptomatic Bradycardia Bacitracin (Bacitracin Oint 1 Each Packet) 1 each TOPICAL TID [facility]; Protocol Last Admin: 09/14/23 08:15 Dose: Not Given Lactulose (Lactulose 20 Gm/30 Ml Cup) 20 gm PO DAILY PRN PRN Reason: Constipation Lorazepam (Lorazepam 0.5 Mg Tab) 0.5 mg PO Q6HR PRN PRN Reason: Anxiety Losartan Potassium (Losartan 50 Mg Tab) 50 mg PO DAILY [facility] Last Admin: 09/14/23 10:28 Dose: 50 mg Metoprolol Tartrate (Metoprolol Tartrate 25 Mg Tab) 25 mg PO TID [facility] Last Admin: 09/14/23 10:28 Dose: 25 mg Miscellaneous Information (Rx Info: Iv Contrast Was Given 1 Each Misc) 1 each MISCELLANE DAILY PRN PRN Reason: Per Protocol Stop: 09/15/23 12:19 Naloxone HCl (Naloxone 0.4 Mg/Ml 1 Ml Vial) 0.2 mg IV Q2M PRN PRN Reason: Opioid Reversal Nicotine (Nicotine 21mg/24hr Patch) 1 patch TRANSDERM DAILY [facility] Last Admin: 09/14/23 08:09 Dose: 1 patch Nitroglycerin (Nitroglycerin Sl Tabs 0.4 Mg Tab) 0.4 mg SUBLINGUAL Q5M PRN PRN Reason: Chest Pain Ondansetron HCl (Ondansetron 4 Mg/2 Ml Vial) 4 mg IVP Q8HR PRN PRN Reason: Nausea And Vomiting Temazepam (Temazepam 15 Mg Cap) 15 mg PO HS PRN PRN Reason: Insomnia Ticagrelor (Ticagrelor 90 Mg Tab) 90 mg PO BID [facility] Last Admin: 09/14/23 08:09 Dose: 90 mg Zolpidem Tartrate (Zolpidem 5 Mg Tab) 5 mg PO HS PRN PRN Reason: Insomnia 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 Alcohol rarely. Physical examination: VITAL SIGNS: 98.7, 60, 16, 121 x 69, 95% room air GENERAL: Chair, comfortable EYES: Pupils equal. Conjunctiva lakeshia l. HEENT: External appearance of nose and ears normal, oral cavity grossly normal. Some laceration to left forehead. With surrounding bruising NECK: JVD not raised; masses not palpable. HEART: First and second heart sounds are normal; no edema. LUNGS: Respiratory rate normal; diminished breath sounds. ABDOMEN: Soft, nontender, liver spleen not palpable, no masses palpable. PSYCH: Alert and oriented x3; mood and affect lakeshia l. INVESTIGATIONS, reviewed in the clinical context: September 13: White count 9 hemoglobin 12.8 platelets 138 potassium 3.7 creatinine 0.62 September 13, 2023: White count 8.9 hemoglobin 15.1 platelets 224 sodium 140 potassium 3.7 BUN 17 creatinine 0.89 AST 155 ALT 148 Serum alcohol less than 10 EKG tracing personally reviewed by me-ST elevation inferior leads. And depression in lateral leads. Sinus rhythm Chest x-ray film personally reviewed by me-hyperinflation CT scan head and neck: Emphysematous changes. Mild frontal scalp contusion. Assessment plan: -Acute ST elevation inferior wall myocardial infarction Patient was taken to the cardiac News Gathering Technician urgently -CAD with prior stent in 2021. Patient follows with artistic associate Dr. BONNIE Gaffney Angioplasty stenting of the mid RCA and PDA branch of RCA was done with EDITA. Also proximal codominant circumflex coronary artery was stented. Aspirin. Lipitor. Brilinta. -COPD and a current smoker DuoNeb 3 times daily -Erectile dysfunction -Elevated liver enzymes. Could be ischemic liver. Check acute hepatitis profile. Repeat CMP tomorrow. Liver ultrasound -Left forehead contusion secondary to fall Bacitracin ointment -Chronic nicotine dependence cigarette smoker Nicotine patch 21 -Essential hypertension Cozaar. Amlodipine. Toprol-XL. -Full code Discussed with patient. Increase activity. Repeat CMP tomorrow. Past Medical History Past Medical History: Chest Pain / Angina, COPD, Hyperlipidemia Additional Past Medical History / Comment(s): HX E.D. 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 VASECTOMY Past Anesthesia/Blood Transfusion Reactions: No Reported Reaction Date of Last Stent Placement:: 11/2021 Past Psychological History: No Psychological Hx Reported Smoking Status: Current every day smoker Past Alcohol Use History: None Reported Past Drug Use History: None Reported
--- NOTE | 2023-09-14 16:18 | P.PN ---
Subjective History of present illness: This is a 70-year-old male patient of Dr. BONNIE Gaffney with past medical history of coronary artery disease status post PCI of the LAD in November 2021, hypertension, hyperlipidemia, COPD, chronic tobacco use and dependence. We have been asked to evaluate the patient for STEMI. Patient apparently was at work this morning and was not feeling well went into the office and collapsed and hit the left side of his face. AED was applied and patient received 2 shocks followed by CPR. He received approximately 5 minutes of CPR until EMS arrived. Patient was found to be in V-fib and received a third shock. This converted him to sinus rhythm and initial EKG by EMS showed ST elevation, STEMI alert was called. Patient was in itially combative and as his mental status improved, patient became more cooperative. Patient was taken urgently to the Material Mixer. EKG Chest x-ray: Interstitial densities appear to have increased. Consider bronchitis or atypical pneumonias. CT of the brain and cervical spine revealed mild frontal scalp contusion. No intracranial abnormality. No fracture or malalignment of the cervical spine. Emphysematous changes in the upper lungs. CBC unremarkable. INR 0.9. Potassium 3.7, creatinine 0.89. AST 155, ALT 148. Troponin negative x 1. Serum alcohol level less than 10. Home cardiac medications: Amlodipine 2.5 mg daily, aspirin 81 mg daily, atorvastatin 80 mg at bedtime, Plavix 75 mg at bedtime, losartan 50 mg daily, Toprol-XL 25 mg daily. 09/13 Patient seen and examined. Patient denies any chest pain other than renovate did chest compressions. No significant shortness breath. Echo shows EF 50-55%. He remains in sinus rhythm on telemetry. He is status post PCI of RCA and circ umflex 09/12. Physical examination: Gen: This is a 62-year-old male in no acute distress VS: reviewed HEENT: Head has hematoma to the left forehead, normocephalic. Pupils equal, round. Sclerae is anicteric. NECK: Supple. No JVD. LUNGS: Clear to auscultation. No wheezes or rhonchi. No intercostal retractions. HEART: Regular rate and rhythm. No murmur. ABDOMEN: Soft No tenderness. EXTREMITIES: No pedal edema. No calf tenderness. NEUROLOGICAL: Patient is awake, alert and oriented x3. Assessment: Inferior ST elevated PA, status post PCI of RCA and circumflex Syncopal episode due to PA Closed head injury Coronary artery disease status post PCI of the LAD in 2021 Hypertension Hyperlipidemia COPD Tobacco use and dependence Plan patient with EF 50-55%. Continue with dual antiplatelets with aspirin and brillinta. Continue with metoprolol. Hopeful discharge 24 hours if remains stable. Objective - Vital Signs Vital signs: Vital Signs Temp 98.7 F 09/14/23 08:00 Pulse 60 09/14/23 14:00 Resp 16 09/14/23 14:00 BP 121/69 09/14/23 14:00 Pulse Ox 95 09/14/23 13:00 FiO2 Intake & Output 09/13/23 09/14/23 09/14/23 18:59 06:59 18:59 Intake Total 1425 1980 Output Total 0 Balance 1425 1980 0 Weight 77.111 kg 81.6 kg 81.6 kg Intake: IV 1425 900 0.9 525 900 Oral 1080 Output: Urine 0 Other: Voiding Method Toilet Toilet Toilet # Voids 1 1 0 # Bowel Movements 1 - Labs CBC & Chem 7: 09/14/23 05:41 09/14/23 05:41 Labs: Abnormal Lab Results - Last 24 Hours (Table) 09/14/23 09/14/23 Range/Units 05:41 05:41 RBC 4.07 L (4.30-5.90) m/uL Hgb 12.8 L (13.0-17.5) gm/dL Plt Count 138 L (150-450) k/uL Chloride 113 H (98-107) mmol/L Carbon Dioxide 21 L (22-30) mmol/L Creatinine 0.62 L (0.66-1.25) mg/dL Glucose 105 H (74-99) mg/dL Calcium 8.2 L (8.4-10.2) mg/dL
[2023-09-15 06:28] LABS: ALT 97 U/L (4-49); AST 68 U/L (17-59); African American GFR (CKD) >90 (>60 ml/min/1.73 sqM); Albumin 3.4 g/dL (3.5-5.0); Alkaline Phosphatase 69 U/L (38-126); Anion Gap 6 mmol/L; Blood Urea Nitrogen 9 mg/dL (9-20); Calcium 8.6 mg/dL (8.4-10.2); Carbon Dioxide 23 mmol/L (22-30); Chloride 111 mmol/L (98-107); Glucose 106 mg/dL (74-99); Non-African American GFR(CKD) >90 (>60 ml/min/1.73 sqM); Potassium 3.8 mmol/L (3.5-5.1); Sodium 140 mmol/L (137-145); Total Bilirubin 0.9 mg/dL (0.2-1.3); Total Protein 5.8 g/dL (6.3-8.2)
[2023-09-15] MEDS: METOPROLOL SUCCINATE (ER) 25 MG TAB.ER.24H PO SCH (09:30)
[2023-09-15 10:18] VITALS: RESP 18; TEMP 98.5
[2023-09-15 13:57] VITALS: BP 116/62; PULSE 75
--- NOTE | 2023-09-15 16:10 | P.PN ---
Subjective History of present illness: This is a 70-year-old male patient of Dr. BONNIE Gaffney with past medical history of coronary artery disease status post PCI of the LAD in November 2021, hypertension, hyperlipidemia, COPD, chronic tobacco use and dependence. We have been asked to evaluate the patient for STEMI. Patient apparently was at work this morning and was not feeling well went into the office and collapsed and hit the left side of his face. AED was applied and patient received 2 shocks followed by CPR. He received approximately 5 minutes of CPR until EMS arrived. Patient was found to be in V-fib and received a third shock. This converted him to sinus rhythm and initial EKG by EMS showed ST elevation, STEMI alert was called. Patient was ini tially combative and as his mental status improved, patient became more cooperative. Patient was taken urgently to the Line Therapist. EKG Chest x-ray: Interstitial densities appear to have increased. Consider bronchitis or atypical pneumonias. CT of the brain and cervical spine revealed mild frontal scalp contusion. No intracranial abnormality. No fracture or malalignment of the cervical spine. E mphysematous changes in the upper lungs. CBC unremarkable. INR 0.9. Potassium 3.7, creatinine 0.89. AST 155, ALT 148. Troponin negative x 1. Serum alcohol level less than 10. Home cardiac medications: Amlodipine 2.5 mg daily, aspirin 81 mg daily, atorvastatin 80 mg at bedtime, Plavix 75 mg at bedtime, losartan 50 mg daily, Toprol-XL 25 mg daily. 09/13 Patient seen and examined. Patient denies any chest pain other than renovate did chest compressions. No significant shortness breath. Echo shows EF 50-55%. He remains in sinus rhythm on telemetry. He is status post PCI of RCA and circumflex 09/12. 09/14 patient seen and examined. Patient denies any chest pain or pressure. He still has some soreness from his compressions. Creatinine has been stable. He was previously on Plavix however this was switched over to Brillinta Physical examination: Gen: This is a 62-year-old male in no acute distress VS: reviewed HEENT: Head has hematoma to the left forehead, normocephalic. Pupils equal, round. Sclerae is anicteric. NECK: Supple. No JVD. LUNGS: Clear to auscultation. No wheezes or rhonchi. No intercostal retractions. HEART: Regular rate and rhythm. No murmur. ABDOMEN: Soft No tenderness. EXTREMITIES: No pedal edema. No calf tenderness. NEUROLOGICAL: Patient is awake, alert and oriented x3. Assessment: Inferior ST elevated NH, status post PCI of RCA and circumflex Syncopal episode due to [place] Closed head injury Coronary artery disease status post PCI of the LAD in 2021 Hypertension Hyperlipidemia COPD Tobacco use and dependence Plan patient with EF 50-55%. Continue with dual antiplatelets with aspirin and brillinta. Continue with metoprolol. patient stable for discharge from a cardiology standpoint Objective - Vital Signs Vital signs: Vital Signs Temp 98.5 F 09/15/23 12:00 Pulse 75 09/15/23 12:00 Resp 18 09/15/23 12:00 BP 116/62 09/15/23 12:00 Pulse Ox 95 09/15/23 12:00 FiO2 Intake & Output 09/14/23 09/15/23 09/15/23 18:59 06:59 18:59 Intake Total 240 Output Total 0 Balance 0 240 Weight 81.6 kg 80.2 kg Intake: Oral 240 Output: Urine 0 Other: Voiding Method Toilet Toilet Toilet # Voids 0 1 2 # Bowel Movements 1 1 - Labs CBC & Chem 7: 09/14/23 05:41 09/15/23 05:48 Labs: Abnormal Lab Results - Last 24 Hours (Table) 09/15/23 Range/Units 05:48 Chloride 111 H (98-107) mmol/L Glucose 106 H (74-99) mg/dL AST 68 H (17-59) U/L ALT 97 H (4-49) U/L Total Protein 5.8 L (6.3-8.2) g/dL Albumin 3.4 L (3.5-5.0) g/dL
--- NOTE | 2023-09-15 16:39 | P.DS ---
Providers Date of admission: 09/13/23 10:34 Expected date of discharge: 09/15/23 Attending physician: Nick Ratliff Consults: 09/13/23 10:34 Consult Physician Stat Consulting Provider: Brock Jones Consult Reason/Comments: vfib arrest Do you want consulting provider notified?: Already Contacted 09/13/23 12:19 Consult Physician Routine Consulting Provider: [facility] Consult Reason/Comments: Post Interventional Patient Do you want consulting provider notified?: Already Contacted [facility] Course: Chief Complaint: Chest pain This is a pleasant 62-year-old patient, follows with Dr. Peña. Chronic stable medical conditions include COPD, hyperlipidemia, erectile dysfunction, a nd has prior cardiac catheterization with stent in November 2021. Follows with cardiology Dr. BONNIE Gaffney. Patient continues to smoke. This morning patient went to work and has been having chest pressure this morning. Also felt a bit little light headed. He had called into work. Was not feeling well and then he dropped to the ground on his face. AED was pronounced on him and he was defibrillated twice. CPR was started. When EMS arrived patient was agonal. He was shocked for the third time. And he was arousable. On way to the hospital he started answering questions appropriately. Out of hospital EKG showed ST elevation. Patient was taken urgently to the cardiac Broadcast Operations Engineer. Angioplasty stenting of the mid RCA and PDA branch of RCA was done with EDITA. Also proximal codominant circumflex coronary artery was stented. Postprocedure patient was taken to the ICU. Chest pain-free. Patient's son and daughter at the bedside. September 13: Patient ICU. Up in the chair. Has been up to the bathroom. No chest pain or short of breath. 2D echo shows preserved LV function. No obvious wall motion abnormality. Have asked the patient to ambulate in the hallway. Will order liver ultrasound in view of elevated LFTs yesterday. Could be from ischemic liver from patient passing out. September 14: Feeling well. Did ambulate. No chest pain or shortness of breath. Seen by Dr. Jones from cardiology. Cleared for discharge. LFTs are significantly come down. Likely acute ischemic liver. Repeat LFTs in 1 week through PCP. 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 Alcohol rarely. Physical examination: VITAL SIGNS: 98.5, 75, 18, 116 x 62, 95% room air GENERAL:, Comfortable EYES: Pupils equal. Conjunctiva lakeshia l. HEENT: External appearance of nose and ears normal, oral cavity grossly normal. Some laceration to left forehead. With surrounding bruising NECK: JVD not raised; masses not palpable. HEART: First and second heart sounds are normal; no edema. LUNGS: Respiratory rate normal; diminished breath sounds. ABDOMEN: Soft, nontender, liver spleen not palpable, no masses palpable. PSYCH: Alert and oriented x3; mood and affect lakeshia l. INVESTIGATIONS, reviewed in the clinical context: September 14: Potassium 3.8 creatinine 0.67 AST 68 ALT 97 September 13: White count 9 hemoglobin 12.8 platelets 138 potassium 3.7 creatinine 0.62 September 13, 2023: White count 8.9 hemoglobin 15.1 platelets 224 sodium 140 potassium 3.7 BUN 17 creatinine 0.89 AST 155 ALT 148 Serum alcohol less than 10 EKG tracing personally reviewed by me-ST elevation inferior leads. And depression in lateral leads. Sinus rhythm Chest x-ray film personally reviewed by me-hyperinflation CT scan head and neck: Emphysematous changes. Mild frontal scalp contusion. Assessment plan: -Acute ST elevation inferior wall myocardial infarction Patient was taken to the cardiac Broadcast Operations Engineer urgently -CAD with prior stent in 2021. Patient follows with hand painter Dr. BONNIE Gaffney Angioplasty stenting of the mid RCA and PDA branch of RCA was done with EDITA. Also proximal codominant circumflex coronary artery was stented. Aspirin. Lipitor. Brilinta. -COPD and a current smoker Albuterol as needed -Erectile dysfunction -Ischemic liver, acute from underlying acute cardiac event.: Improving Pending results of. Liver ultrasound CMP 7 to 10 days with PCP outpatient -Left forehead contusion secondary to fall Bacitracin ointment -Chronic nicotine dependence cigarette smoker Nicotine patch 21 -Essential hypertension Cozaar. Amlodipine. Toprol-XL. -Full code Disposition: Home Past Medical History Past Medical History: Chest Pain / Angina, COPD, Hyperlipidemia Additional Past Medical History / Comment(s): HX E.D. 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 VASECTOMY Past Anesthesia/Blood Transfusion Reactions: No Reported Reaction Date of Last Stent Placement:: 11/2021 Past Psychological History: No Psychological Hx Reported Smoking Status: Current every day smoker Past Alcohol Use History: None Reported Past Drug Use History: None Reported Plan - Discharge Summary Discharge Rx Participant: No New Discharge Prescriptions: New Ticagrelor [Brilinta] 90 mg PO BID #60 tab Nicotine 21Mg/24Hr Patch [Habitrol] 1 patch TRANSDERM DAILY #30 patch Nitroglycerin Sl Tabs [Nitrostat] 0.4 mg SUBLINGUAL Q5M PRN #30 tab PRN Reason: Chest Pain Continue Sildenafil Citrate 100 mg PO DAILY PRN PRN Reason: E.D Albuterol Nebulized [Ventolin Nebulized] 2.5 mg INHALATION RT-TID PRN PRN Reason: Shortness Of Breath Acetaminophen Tab [Tylenol] 1,000 mg PO Q6HR PRN PRN Reason: Pain Aspirin 81 mg PO DAILY #90 tab Losartan [Cozaar] 50 mg PO DAILY #90 tab Metoprolol Succinate (ER) [Toprol XL] 25 mg PO DAILY Atorvastatin [Lipitor] 80 mg PO HS Discontinued amLODIPine [Norvasc] 2.5 mg PO DAILY Clopidogrel [Plavix] 75 mg PO HS Discharge Medication List Aspirin 81 mg PO DAILY #90 tab 11/22/21 [Rx] Losartan [Cozaar] 50 mg PO DAILY #90 tab 11/22/21 [Rx] Metoprolol Succinate (ER) [Toprol XL] 25 mg PO DAILY 05/28/22 [History] Sildenafil Citrate 100 mg PO DAILY PRN 05/28/22 [History] Acetaminophen Tab [Tylenol] 1,000 mg PO Q6HR PRN 09/13/23 [History] Albuterol Nebulized [Ventolin Nebulized] 2.5 mg INHALATION RT-TID PRN 09/13/23 [History] Atorvastatin [Lipitor] 80 mg PO HS 09/13/23 [History] Nicotine 21Mg/24Hr Patch [Habitrol] 1 patch TRANSDERM DAILY #30 patch 09/15/23 [Rx] Nitroglycerin Sl Tabs [Nitrostat] 0.4 mg SUBLINGUAL Q5M PRN #30 tab 09/15/23 [Rx] Ticagrelor [Brilinta] 90 mg PO BID #60 tab 09/15/23 [Rx] Follow up Appointment(s)/Referral(s): Jyothi Gaffney MD [STAFF PHYSICIAN] - 1 Week Tello Peña DO [Primary Care Provider] - 1-2 days
--- NOTE | 2023-09-15 20:53 | US ---
EXAMINATION TYPE: US abdomen limited DATE OF EXAM: 09/14/2023 COMPARISON: NONE CLINICAL INDICATION: Male, 62 years old with history of abnormal LFTs TECHNIQUE: Multiple sonographic images of the right upper quadrant are obtained. FINDINGS: EXAM MEASUREMENTS: Liver Length: 18.4 cm Gallbladder Wall: 0.2 cm CBD: 0.4 cm Right Kidney: 12.0 x 5.5 x 5.7 cm Pancreas: The visualized pancreatic head and body show no gross abnormality. The tail is obscured by bowel gas shadowing. Liver: wnl Gallbladder: wnl Evidence for sonographic Helton's sign: No CBD: wnl Right Kidney: There is mild pelviectasis. IMPRESSION: 1. No gallstones or biliary ductal dilatation. 2. Mild hepatomegaly at 18.4 cm but with otherwise, normal ultrasound appearance. 3. Mild pelviectasis of the right kidney may be transient. Consider short interval follow-up. No stephanie ceal dilatation to suggest dax hydronephrosis.
== END 2023-09-15 17:32 | disposition home or self-care (01) | DRG 321 ==
LOC: EC 09:59 → 2SICU 10:34
PROVIDERS: ADMIT Hospitalist; ATTEND Hospitalist
PROC: 027136Z Dilation of Coronary Artery, Two Arteries with Three Drug-eluting Intraluminal Devices, Percutaneous Approach (ICD-10-PCS; principal; 2023-09-13 10:06)
PROC: 4A023N7 Measurement of Cardiac Sampling and Pressure, Left Heart, Percutaneous Approach (ICD-10-PCS; 2023-09-13 10:06)
PROC: B2111ZZ Fluoroscopy of Multiple Coronary Arteries using Low Osmolar Contrast (ICD-10-PCS; 2023-09-13 10:06)
PROC: B240ZZ3 Ultrasonography of Single Coronary Artery, Intravascular (ICD-10-PCS; 2023-09-13 10:06)
DX: I21.19 ST elevation (STEMI) myocardial infarction involving other coronary artery of inferior wall (principal); I46.2 Cardiac arrest due to underlying cardiac condition; I49.01 Ventricular fibrillation; I10 Essential (primary) hypertension; I25.10 Atherosclerotic heart disease of native coronary artery without angina pectoris; J44.9 Chronic obstructive pulmonary disease, unspecified; K59.00 Constipation, unspecified; G47.00 Insomnia, unspecified; F41.9 Anxiety disorder, unspecified; E78.5 Hyperlipidemia, unspecified; S00.03XA Contusion of scalp, initial encounter; W19.XXXA Unspecified fall, initial encounter; F17.210 Nicotine dependence, cigarettes, uncomplicated; Z79.02 Long term (current) use of antithrombotics/antiplatelets; Z79.82 Long term (current) use of aspirin; Z79.899 Other long term (current) drug therapy
CPT/HCPCS: 36415; 70450; 71045; 72125; 76705; 80048; 80053; 80320; 83735; 84484; 85025; 85610; 85730; 92978; 93005; 93306; 93458